=== PATIENT | female | born 1945 | race Caucasian/White ===

== ENCOUNTER 2024-01-17 18:09 | Inpatient (IN) | payer MEDICARE, SELFPAY ==
[2024-01-17 14:58] VITALS: BP 134/78
--- NOTE | 2024-01-17 15:28 | ED.GENMED ---
History of Present Illness
<Merissa Willett NEW CAR MAKE [employer] MECHANIC - Last Filed: 01/18/24 15:25>
General
Chief Complaint: Catheter/Tube Problem
Source: patient and spouse
Exam Limitations: none
Time Seen by Provider: 01/17/24 15:11
Nursing documentation reviewed up to this point in time: agreed with
Travel History
Have you had any contact with someone who has COVID-19?: No
Do you have any symptoms of coronavirus? Fever > 100 degrees, chills, cough, shortness of breath, sore throat, loss of taste or smell, muscle aches, or headache?: No
History of Present Illness
History of Present Illness:
78 yo female with hx bladder CA, L nephrostomy stopped draining properly 3 days ago, changed the bag 3 and 2 days ago, drained but not as much. Yesterday aspirated urine small amount, last night pt became achey, fatigues LLQ tenderness,
chills and felt feverish. Denies n/v. Today still little drainage, aspirated '4 cc's of pus.'
Past History
<Merissa Willett NEW [employer] MECHANIC - Last Filed: 01/18/24 15:25>
Past History
ED Past Medical History: Other (bladder mass causing ANDRE/obstruction)
ED Past Surgical History: Appendectomy and Gynecological (Hysterectomy)
Social History
Tobacco: Non-smoker
Alcohol: None
Drug: None
Personal:
Living: with family
Employment: Retired
Family History
Family History: Other
Review of Systems
<Merissa Willett NEW CAR MAKE [employer] MECHANIC - Last Filed: 01/18/24 15:25>
Review of Systems
Allergies reviewed?: Yes
All Other Systems: ROS reviewed and negative except as documented in HPI and ROS
Constitutional: Reports fever, fatigue and chills
Respiratory: Denies trouble breathing
Cardiac: Denies chest pain
ABD/GI: Reports abdominal pain (She has her typical right lower quadrant abdominal pain from the cancer, she has developed mild left lower quadrant pain past 3 days) and nausea; Denies vomiting or diarrhea
: Reports other (Left nephrostomy tube intact, patient urine has become purulent)
Musculoskeletal: Reports other (General body aches); Denies edema
Skin: Reports no symptoms
Neurological: Reports no symptoms
Phy Exam
<Merissa Willett, NEW CAR MAKE [employer] MECHANIC - Last Filed: 01/18/24 15:25>
Physical Exam
Physical Exam:
GENERAL: No acute distress. A&Ox3.
CONSTITUTIONAL: Afebrile.
EYES: clear, conjunctivae normal
ENMT: moist mucus membranes, Pharynx nl
RESPIRATORY: Regular respirations, nonlabored, lungs clear.
CARDIOVASCULAR: Regular rate and rhythm, no murmurs, no rubs.
GI: Soft, mild tenderness across lower abdomen. Non distended. normal BS
: Nephrostomy tube intact, surrounding skin normal, draining small amount cloudy galeano fluid
MUSCULOSKELETAL: Moves with ease. Well perfused.
SKIN: Warm, dry, pink
PSYCH: Normal mood and affect. Well kept, interactive and appropriate
NEUROLOGIC: Awake, alert and oriented. No focal neurological deficits
Course
<Merissa Willett, NEW CAR [employer] MECHANIC - Last Filed: 01/18/24 15:25>
Orders/Labs/Results
Orders:
Orders
01/17/24 Dinner
Regular
At Your Request: Non-Participating
Does patient need a safe tray?: No
01/17/24 15:28
0.9% Sodium Chloride 1000 ml [Nss] 1,000 ml IV BOLUS
01/17/24 15:37
IV Insert/Care/Rem.- Treatment PRN
CefTRIAXone [Rocephin] 1,000 mg IV NOW STA
01/17/24 15:55
Complete Blood Count/With Diff Urgent
Comprehensive Metabolic Panel Urgent
Lactic Acid Q4H
Comment: CANCEL 2nd LACTIC ACID IF 1st LACTIC ACID IS LESS THAN 2
Urinalysis Reflex To Culture Urgent
Date Specimen was Collected: 01/17/24
Time Specimen was Collected: 15:44
Urine Microscopic Reflex Cult Urgent
Blood Culture Q30M
SHILPA Source: Blood/Venous
Specimen Description:
Urine Culture Urgent
SHILPA Source: U
Specimen Description:
Date Specimen was Collected: 01/17/24
Time Specimen was Collected: 15:44
01/17/24 16:13
Blood Culture Q30M
SHILPA Source: Blood/Venous
Specimen Description:
01/17/24 17:08
Consult Interventional Radiology [IRAD CONSULT] Urgent
Consulting Provider: Christian Harrell
Was physician already notified: Yes
Reason for consult: UTI, acute renal failure, nephrostomy draining pus
01/17/24 17:09
UROLOGY CONSULT Urgent
Consulting Provider: Canelo Rai Jr.
Was physician already notified: Yes
Comment: UTI, acute renal failure, nephrostomy draining pus
01/17/24 17:54
Admit/Transfer Patient As Directed
Co-Sign Provider:
Level of Care: Inpatient admission
Assign to:: Medical/Surgical
Physician / Group: Brittany
Diagnosis: UTI
Reason for Hospitalization: UTI
Expected length of stay greater than two midnights?: Yes
ELOS- Estimated Length of Stay in days: 3
I certify the patient meets the requirements for IP care: Yes
01/17/24 17:55
Code Status As Directed
Resuscitation Status: Full Code
01/17/24 19:25
0.9% Sodium Chloride 1000 ml [Nss] 1,000 ml IV 75 mls/hr
Acetaminophen [Tylenol] 650 mg PO Q4HPRN PRN
Ondansetron Injectable [Zofran] 4 mg IV Q6HPRN PRN
Polyethylene Glycol Powder [Miralax] 17 grams PO DAILYPRN PRN
VANCOMYCIN Pharmacy to Dose [VANCOCIN Pharmacy to Dose] 1 each Pharmacy To Prepare [Call Pharmacy To Prepare] 0 ml IV PER PROTOCOL
01/17/24 19:25
Activity As Directed
Activity Level: Out of Bed-Early Mobility
Vital Signs As Directed
Frequency: Per unit guidelines
DX Deep Vein Thrombosis Video Routine
01/18/24 05:26
Basic Metabolic Panel IN AM
Complete Blood Count/With Diff IN AM
01/18/24 14:00
CefTRIAXone [Rocephin] 1,000 mg IV Q24H
Abnormal Lab Results
01/17/24
15:55
WBC 12.0 H 10^3/uL
(4.8-10.8)
RBC 3.73 L 10^6/uL
(4.20-5.40)
Hgb 11.6 L g/dL
(12.0-16.0)
Hct 33.0 L %
(37.0-47.0)
MCH 31.1 H pg
(27.0-31.0)
Absolute Neuts (auto) 9.9 H 10^3/uL
(1.4-6.5)
Absolute Lymphs (auto) 1.1 L 10^3/uL
(1.2-3.4)
Absolute Monos (auto) 0.9 H 10^3/uL
(0.1-0.6)
Neutrophils % 83.0 H %
(42.2-75.2)
Lymphocytes % 8.9 L %
(20.5-51.1)
Sodium 130 L mmol/L
(135-145)
BUN 40 H mg/dl
(7-17)
Creatinine 3.1 H mg/dL
(0.6-1.0)
Ur Occult Blood Reflex 4+ A
(Negative)
Urine Nitrite (Reflex) Positive A
(Negative)
Leukocyte Esterase Rfl 2+ A
(Negative)
Urine WBC (Reflex) >100 A /HPF
(0-5)
Urine Albumin (Reflex) 3+ A
(Neg - Trace)
01/17/24 15:55
01/17/24 15:55
Vital Signs
Initial and Last Documented VS:
Initial Vital Signs
Temp Pulse Resp BP Pulse Ox
98.2 F 77 18 134/78 97
01/17/24 14:58 01/17/24 14:58 01/17/24 14:58 01/17/24 14:58 01/17/24 14:58
Last Documented Vital Signs
Temp Pulse Resp BP Pulse Ox
98.3 F 69 16 127/86 98
01/18/24 11:19 01/18/24 11:19 01/18/24 11:19 01/18/24 11:19 01/18/24 11:19
Steamer Tender consulted with Physician
Steamer Tender consulted with physician?: Yes
Name of Physician Consulted: Rachael
<Sonam Cano MD - Last Filed: 01/17/24 16:12>
Orders/Labs/Results
Orders:
Orders
01/17/24 Dinner
Regular
At Your Request: Non-Participating
Does patient need a safe tray?: No
01/17/24 15:28
0.9% Sodium Chloride 1000 ml [Nss] 1,000 ml IV BOLUS
01/17/24 15:37
IV Insert/Care/Rem.- Treatment PRN
CefTRIAXone [Rocephin] 1,000 mg IV NOW STA
01/17/24 15:55
Complete Blood Count/With Diff Urgent
Comprehensive Metabolic Panel Urgent
Lactic Acid Q4H
Comment: CANCEL 2nd LACTIC ACID IF 1st LACTIC ACID IS LESS THAN 2
Urinalysis Reflex To Culture Urgent
Date Specimen was Collected: 01/17/24
Time Specimen was Collected: 15:44
Urine Microscopic Reflex Cult Urgent
Blood Culture Q30M
SHILPA Source: Blood/Venous
Specimen Description:
Urine Culture Urgent
SHILPA Source: U
Specimen Description:
Date Specimen was Collected: 01/17/24
Time Specimen was Collected: 15:44
01/17/24 16:13
Blood Culture Q30M
SHILPA Source: Blood/Venous
Specimen Description:
01/17/24 17:08
Consult Interventional Radiology [IRAD CONSULT] Urgent
Consulting Provider: Christian Harrell
Was physician already notified: Yes
Reason for consult: UTI, acute renal failure, nephrostomy draining pus
01/17/24 17:09
UROLOGY CONSULT Urgent
Consulting Provider: Canelo Rai Jr.
Was physician already notified: Yes
Comment: UTI, acute renal failure, nephrostomy draining pus
01/17/24 17:54
Admit/Transfer Patient As Directed
Co-Sign Provider:
Level of Care: Inpatient admission
Assign to:: Medical/Surgical
Physician / Group: Brittany
Diagnosis: UTI
Reason for Hospitalization: UTI
Expected length of stay greater than two midnights?: Yes
ELOS- Estimated Length of Stay in days: 3
I certify the patient meets the requirements for IP care: Yes
01/17/24 17:55
Code Status As Directed
Resuscitation Status: Full Code
01/17/24 19:25
0.9% Sodium Chloride 1000 ml [Nss] 1,000 ml IV 75 mls/hr
Acetaminophen [Tylenol] 650 mg PO Q4HPRN PRN
Ondansetron Injectable [Zofran] 4 mg IV Q6HPRN PRN
Polyethylene Glycol Powder [Miralax] 17 grams PO DAILYPRN PRN
VANCOMYCIN Pharmacy to Dose [VANCOCIN Pharmacy to Dose] 1 each Pharmacy To Prepare [Call Pharmacy To Prepare] 0 ml IV PER PROTOCOL
01/17/24 19:25
Activity As Directed
Activity Level: Out of Bed-Early Mobility
Vital Signs As Directed
Frequency: Per unit guidelines
DX Deep Vein Thrombosis Video Routine
01/18/24 05:26
Basic Metabolic Panel IN AM
Complete Blood Count/With Diff IN AM
01/18/24 14:00
CefTRIAXone [Rocephin] 1,000 mg IV Q24H
Abnormal Lab Results
01/17/24
15:55
WBC 12.0 H 10^3/uL
(4.8-10.8)
RBC 3.73 L 10^6/uL
(4.20-5.40)
Hgb 11.6 L g/dL
(12.0-16.0)
Hct 33.0 L %
(37.0-47.0)
MCH 31.1 H pg
(27.0-31.0)
Absolute Neuts (auto) 9.9 H 10^3/uL
(1.4-6.5)
Absolute Lymphs (auto) 1.1 L 10^3/uL
(1.2-3.4)
Absolute Monos (auto) 0.9 H 10^3/uL
(0.1-0.6)
Neutrophils % 83.0 H %
(42.2-75.2)
Lymphocytes % 8.9 L %
(20.5-51.1)
Sodium 130 L mmol/L
(135-145)
BUN 40 H mg/dl
(7-17)
Creatinine 3.1 H mg/dL
(0.6-1.0)
Ur Occult Blood Reflex 4+ A
(Negative)
Urine Nitrite (Reflex) Positive A
(Negative)
Leukocyte Esterase Rfl 2+ A
(Negative)
Urine WBC (Reflex) >100 A /HPF
(0-5)
Urine Albumin (Reflex) 3+ A
(Neg - Trace)
01/17/24 15:55
01/17/24 15:55
Vital Signs
Initial and Last Documented VS:
Initial Vital Signs
Temp Pulse Resp BP Pulse Ox
98.2 F 77 18 134/78 97
01/17/24 14:58 01/17/24 14:58 01/17/24 14:58 01/17/24 14:58 01/17/24 14:58
Last Documented Vital Signs
Temp Pulse Resp BP Pulse Ox
98.3 F 69 16 127/86 98
01/18/24 11:19 01/18/24 11:19 01/18/24 11:19 01/18/24 11:19 01/18/24 11:19
<Merissa Willett NP - Last Filed: 01/18/24 15:25>
MDM/Problems Addressed
Differential Diagnosis Includes:
UTI, pyelonephritis, need for urostomy tube change
MDM/Problems Addressed:
78 yo female with hx bladder CA, L nephrostomy stopped draining properly 3 days ago, changed the bag 3 and 2 days ago, drained but not as much. Yesterday aspirated urine small amount, last night pt became achey, fatigues LLQ tenderness,
chills and felt feverish. Denies n/v. Today still little drainage, aspirated '4 cc's of pus.'
Afebrile
NAD
78-year-old very bright, pleasant, well female, currently being treated at [facility] for bladder cancer, followed by urologist Dr. Rai, here with purulent urine draining from her left nephrostomy tube.
01/17/2024 1646 PM
01/17/2024 1636 PM
CBC: WBC 12.0
CMP: BUN/creat 40/3.1 GFR 15.02
U/A: shows infection greater than 100 white blood cells, plus nitrites, plus leukocytes, 4+ blood
Pt in acute renal failure with UTI
Notified via tiger text Hospitalist, Dr. Rai (as she is his patient), Dr. Wolfe, ophthalmic surgeon Urologist and ophthalmic surgeon IR Dr. Harrell
Plan: Admit, acute renal failure, UTI, consult for urology and IR in
Hospitalist notified of admission
Pt examined by Dr. Cano who agrees with assessment and plan
<Merissa Willett NEW [employer] MECHANIC - Last Filed: 01/18/24 15:25>
*Critical Care Note
Total Time (30-74mins, 75-104mins- exclusive of procedures): Not Applicable
ED Attending Note
<Merissa Willett NEW [employer] MECHANIC - Last Filed: 01/18/24 15:25>
-
Portions of this chart may have been created with voice recognition software.� Occasional wrong word or��sound alike� substitutions may have occurred due to the inherent limitations of voice recognition software.
<Sonam Cano MD - Last Filed: 01/17/24 16:12>
ED Attending Note
Patient seen and examined by attending physician: Yes
I performed the substantive portion of visit, reviewed & personally made and approve the management plan that is documented in note by myself or JENNIFER.: Yes
ED Attending Note:
Pt appears well-perfused and comfortable. She appears nontoxic. Blood pressure stable. No fever. Case will be discussed with interventional radiology and IR. Blood work awaiting.
Discharge Plan
Departure
Patient Disposition: Admit
Date of Disposition: 01/17/24
Time of Disposition: 17:13
Presentation/result/management discussed w/ accepting MD/DO: Hospitalist
Condition: Serious
Discharge Problem:
Acute UTI, Acute renal failure, Malfunction of nephrostomy tube, Bladder cancer
Interventions
Interventions:
*Risk Screen - Suicide Last Done: 01/17/24 20:23
*General Assessment Last Done: 01/17/24 14:58
*Neglect/Abuse Screening Last Done: 01/17/24 16:10
ED- Fall Risk Assessment Last Done: 01/17/24 16:10
*ED COVID-19 Vaccine History Last Done: 01/17/24 20:23
*Nursing Disposition Last Done: 01/17/24 18:40
TF-Tbjygp-Ytlrtfynsp Assessment Last Done: 01/17/24 16:10
ED-Female Genitourinary Assessment Last Done: 01/17/24 16:10
Discharge Date and Time
Discharge Date/Time: 01/17/24 19:13
[2024-01-17] MEDS: ROCEPHIN 1000 MG IV (15:52)
[2024-01-17] MEDS: NSS 1000 IV ×2 (15:53→20:15)
[2024-01-17 16:01] VITALS: BP 116/79
[2024-01-17 16:15] LABS: % Basophils 0.1 % (0-2); % Eosinophils 0.2 % (0-6); % Immature Granulocytes 0.3 % (0-0.5); % Lymphocytes 8.9 % (20.5-51.1); % Monocytes 7.5 % (1.7-9.3); Absolute Lymphocytes 1.1 10^3/uL (1.2-3.4); Absolute Monocytes 0.9 10^3/uL (0.1-0.6); Absolute Neutrophils 9.9 10^3/uL (1.4-6.5); Hemoglobin 11.6 g/dL (12.0-16.0); Mean Corp Hgb Conc. 35.2 g/dL (33.0-37.0); Mean Corpuscular Hgb 31.1 pg (27.0-31.0); Mean Corpuscular Volume 88.5 fL (81.0-99.0); Mean Platelet Volume 8.7 fL (7.4-10.4); Nucleated Red Blood Cells % 0 %; Platelet Count 312 10^3/uL (130-400); Red Blood Cell Count 3.73 10^6/uL (4.20-5.40); Red Cell Dist. Width 12.8 % (11.5-14.5)
[2024-01-17 16:19] LABS: Urine Albumin 3+ (Neg - Trace); Urine Bilirubin Negative (Negative); Urine Character Very Cloudy (Clear); Urine Color Yellow; Urine Glucose Negative (Negative); Urine Ketone Negative (Negative); Urine Leukocyte 2+ (Negative); Urine Nitrite Positive (Negative); Urine Occult Blood 4+ (Negative); Urine Urobilinogen Negative (Neg - 1+)
[2024-01-17 16:30] LABS: Lactic Acid 0.8 mmol/L (0.7-2.0)
[2024-01-17 16:32] LABS: ALT (SGPT) 13 U/L (0-35); AST (SGOT) 19 U/L (14-36); Albumin 3.6 g/dl (3.5-5.0); Alkaline Phosphatase 89 U/L (38-126); Blood Urea Nitrogen 40 mg/dl (7-17); Carbon Dioxide 27 mmol/L (22-30); Chloride 98 mmol/L (98-107); Glucose 97 mg/dl (70-99); Potassium 4.8 mmol/L (3.5-5.1); Sodium 130 mmol/L (135-145); Total Bilirubin 0.7 mg/dl (0.2-1.3); Total Protein 6.8 g/dl (6.3-8.2); eGFR 15.02
[2024-01-17 16:50] LABS: Urine White Cell >100 /HPF (0-5)
[2024-01-17 17:00] VITALS: BP 128/76
[2024-01-17 18:01] VITALS: BP 122/67
--- NOTE | 2024-01-17 18:28 | HPS.HSE ---
Family Physician
-
Family Physician: * NONE
Chief Complaint
-
Fatigue, nausea, vomiting and purulent discharge from left nephrostomy tube
History of Present Illness
Pleasant 78-year-old female lives at home with her and family, presented to the hospital complaining of having generalized weakness, fatigue, nausea and nonbloody vomiting, also noticed a purulent discharge from her left nephrostomy tube.
Admitted poor appetite for last couple of day.
Patient was diagnosed with bladder cancer and July 2022 and since then she was referred to [facility] and get chemo on total October of the last year and look like she was told she is cancer free by then she is supposed to have another scan we
will decide on surgery accordingly.
She had a UTI not long ago and urine grow MRSA and Enterococcus.
Denies any diarrhea, no chest pain or shortness of breath or cough or congestion, no weakness or numbness in extremities, she is not urinating normally because of the bilateral nephrostomy tube.
In the ER received fluids and antibiotic and overall feels some improvement and she feels her appetite improved and she wants to eat.
Medical History
Past Medical History
Past Medical History: Reports Other
Additional Past Medical History:
Past medical history reviewed:
Bladder cancer.
Surgical history:
Bilateral nephrostomy tube placement
Appendectomy
Hysterectomy nephrectomy.
Social history: Lives at home with the family, denies smoking alcohol use
Past Surgical History: Reports Other
Social History
Unable to obtain full social history at this time due to: Other
Alcohol: Other
Family History
Family History: Other
Allergies / Home Medications
Allergies reflects when Allergies were last updated in [employer].
Home Medications with original date entered in [employer]
Allergy/Medication List:
Allergies
Allergy/AdvReac Type Severity Reaction Status Date / Time
No Known Allergies Allergy Verified 01/17/24 15:02
Home Medications
oxycodone-acetaminophen 10 mg-325 mg tablet 1 tab PO Q6HPRN PRN severe pain 01/02/23
ashwagandha extract 120 mg capsule 120 mg PO DAILY 01/17/24
calcium carbonate 500 mg calcium (1,250 mg) tablet 500 mg PO DAILY 01/17/24
cholecalciferol (vitamin D3) 25 mcg (1,000 unit) tablet (Vitamin D3) 25 mcg PO DAILY 01/17/24
coQ10 (ubiquinol) 100 mg capsule 200 mg PO DAILY 01/17/24
lutein 10 mg tablet 10 mg PO DAILY 01/17/24
omega 4-yve-qxc-fish oil 1,000 mg (120 mg-180 mg) capsule (Fish Oil) 1 cap PO DAILY 01/17/24
polyethylene glycol 3350 17 gram oral powder packet (Miralax) 17 g PO DAILYPRN PRN constipation 01/17/24
therapeutic multivitamin 1 tab PO DAILY 01/17/24
vitamin E 268 mg (400 unit) capsule 268 mg PO DAILY 01/17/24
vitamin K2 45 mcg capsule 45 mcg PO DAILY 01/17/24
Review of Systems
-
A 12 point ROS was completed and negative except as noted: Yes
Physical Exam
Vital Signs
Vital Signs
Temp Pulse Resp BP Pulse Ox
98.2 F 67 19 122/67 96
01/17/24 14:58 01/17/24 18:01 01/17/24 18:01 01/17/24 18:01 01/17/24 18:01
Physical exam:
General: Awake, alert and oriented x3, not in distress and holds appropriate conversation.
HEENT: No active discharge, ecchymosis or bruising, moist lips, tongue and mucous membrane.
Eyes: No discharge or red conjunctiva, no nystagmus, pupils are reactive and equal
Neck:Supple, no JVD no bruit no goiter.
Respiratory: Normal AP contour and diameter, normal chest wall movement, normal respiratory effort, no respiratory distress,
Lungs: Good air entry bilaterally, no wheezing or rhonchi, no rales or crackles
Heart: S1, S2 regular, normal rate, no added sound.
Genitourinary:
Bilateral nephrostomy tube in the left bag containing some purulent milky material.
Gastrointestinal: Positive bowel sounds, soft, nontender, no guarding or rigidity or organomegaly
Musculoskeletal: , no chest wall abnormality or tenderness. All joints and extremities have good range of motion, no muscle tenderness or any joint swelling or tenderness.
Extremities: No pitting edema, good peripheral pulses, good range of motion
Skin: Warm and dry, no ulceration, normal color.
Neurological: Awake, alert and oriented x3, no facial droop speech clear and comprehensive, good muscle tone, normal sensory and motor function
Psychiatric: Normal mood, normal thought and judgment, normal affect,
Physical Exam
General: Other
Laboratory Results
-
01/17/24 15:55
01/17/24 15:55
Laboratory Results
Lactic Acid 0.8 mmol/L (0.7-2.0) 01/17/24 15:55
Total Bilirubin 0.7 mg/dl (0.2-1.3) 01/17/24 15:55
AST 19 U/L (14-36) 01/17/24 15:55
ALT 13 U/L (0-35) 01/17/24 15:55
Alkaline Phosphatase 89 U/L (38-126) 01/17/24 15:55
Data Reviewed
-
Medical Tests (Nuc Med, Echo, EKG etc): Discussed with Patient
Lab Data: Labs Reviewed by me and Discussed with Patient
Old Records: Reviewed
Impression/Plan
-
IMPRESSION:
Pleasant 78-year-old female with history of bladder cancer diagnosed July 2022 and since then she is having bilateral nephrostomy tube. Presented to the hospital with fatigue, nausea and vomiting and purulent discharge from the lower
nephrostomy with the workup concerning for UTI.
Urinary tract infection likely nephrostomy tube related
Leukocytosis
Nausea and vomiting
Dehydration
PLAN:
IV fluid
Pain and nausea medication
I will cover her with Rocephin and vancomycin IV because of the history of the MRSA and Enterococcus grew in her past culture, antibiotic can be tailored accordingly.
Urology consulted and they have been contacted as well as IR
Urology and IR consult.
She takes multiple vitamins and pulm on hold
Continue her home dose of Percocet as needed.
All discussed with the patient in detail and expressed understanding
CODE STATUS full code
DVT prophylaxis Lovenox
[2024-01-17 19:51] VITALS: BP 144/86; BMI 18.7
--- NOTE | 2024-01-17 19:56 | PHA.VAN.IN ---
Assessment
- Assessment
Renal Function: Appears elevated from baseline (baseline 1.0-1.3)
Maximum Temperature: 98.2
Minimum Temperature: 97.7
Concomitant Antimicrobials: ceftriaxone
Historical Micro: History of MRSA infection (01/02/2023 in urine)
Plan
- Plan
Initial / Loading Dose: 1500mg (28 mg/kg) pending administration
Maintenance Regimen: dose by level
Monitoring: random 01/18 am
Pharmacokinetics Vancomycin I
- -
Patient Age: 78
Patient Sex: Female
Vancomycin Day #: 1
Indication: Genito-Urinary Tract
Requesting Provider: Dr Soto
Pertinent Antimicrobial Allergies:
no known allergies
Height / Weight:
Height 5 ft 7 in
Actual Weight 54.148 kg
Pertinent Past Medical History: bladder cancer with nephrostomy tubes
- Vital Signs / Lab Results
Temp Pulse Resp BP Pulse Ox
97.7 F 74 20 144/86 97
01/17/24 19:51 01/17/24 19:51 01/17/24 19:51 01/17/24 19:51 01/17/24 19:51
Lab Results - Hematology
01/17/24
15:55
WBC 12.0 H
Lab Results - Chemistry
01/17/24
15:55
BUN 40 H
Creatinine 3.1 H
Albumin 3.6
01/17/24
15:55
Lactic Acid 0.8
Lab Results - Urine
01/17/24
15:55
Urine Nitrite (Reflex) Positive A
Leukocyte Esterase Rfl 2+ A
Urine WBC (Reflex) >100 A
Ur Squamous Epith Cells
Urine Bacteria (Reflex)
[2024-01-17] MEDS: VANCOCIN 300 MG IV (20:15)
[2024-01-17] MEDS: VANCOCIN 300 ML IV (20:15)
[2024-01-17] MEDS: ROXICODONE 10 MG PO (21:55)
[2024-01-17 23:03] VITALS: BP 127/78
[2024-01-17] MEDS: HEPARIN SC (23:39)
[2024-01-17] MEDS: HEPARIN 5000 UNITS SC (23:43)
[2024-01-18 06:03] LABS: % Basophils 0.3 % (0-2); % Eosinophils 1.9 % (0-6); % Immature Granulocytes 0.3 % (0-0.5); % Lymphocytes 20.4 % (20.5-51.1); % Monocytes 7.5 % (1.7-9.3); % Neutrophils 69.6 % (42.2-75.2); Absolute Eosinophils 0.2 10^3/uL (0-0.7); Absolute Lymphocytes 1.9 10^3/uL (1.2-3.4); Absolute Monocytes 0.7 10^3/uL (0.1-0.6); Absolute Neutrophils 6.3 10^3/uL (1.4-6.5); Hematocrit 33.5 % (37.0-47.0); Hemoglobin 11.4 g/dL (12.0-16.0); Mean Corpuscular Hgb 31.4 pg (27.0-31.0); Mean Corpuscular Volume 92.3 fL (81.0-99.0); Mean Platelet Volume 9.2 fL (7.4-10.4); Nucleated Red Blood Cells % 0 %; Platelet Count 306 10^3/uL (130-400); Red Blood Cell Count 3.63 10^6/uL (4.20-5.40); Red Cell Dist. Width 12.7 % (11.5-14.5); White Blood Cell Count 9.1 10^3/uL (4.8-10.8)
[2024-01-18 06:13] LABS: Vancomycin Random 20.5 ug/ml
[2024-01-18 06:30] LABS: Blood Urea Nitrogen 41 mg/dl (7-17); Calcium 9.1 mg/dl (8.4-10.2); Carbon Dioxide 23 mmol/L (22-30); Chloride 101 mmol/L (98-107); Estimated Creatinine Clearance 15 ml/min; Glucose 94 mg/dl (70-99); Potassium 4.4 mmol/L (3.5-5.1); Sodium 135 mmol/L (135-145); eGFR 16.97
[2024-01-18 07:10] VITALS: BP 118/77
[2024-01-18] MEDS: HEPARIN SC (08:26)
[2024-01-18 08:36] VITALS: BP 161/100; BP_SYST 70
--- NOTE | 2024-01-18 09:01 | PHA.VAN.FU ---
Vancomycin Assessment / Plan
- Assessment
Renal Function: SCR Decreasing
WBC's are: Trending Down
In the past 24 hrs, patient has been: Afebrile
Concomitant Antimicrobials: ceftriaxone
- Assessment - Therapeutic Drug Monitoring
Random Level: 20.5 - drawn ~9H after 1500mg loading dose
- Dosing Plan
Dosing by Level: Hold off on dosing today
- Monitoring Plan
Random Level: 01/19 600
- Follow Up
Pharmacy will continue to follow.
Vancomycin Follow UP
- -
Patient Age: 78
Patient Sex: Female
Vancomycin Day #: 2
Indication: Genito-Urinary Tract
Requesting Provider: Dr Soto
Pertinent Antimicrobial Allergies:
NKDA
Height / Weight:
Height 5 ft 7 in
Actual Weight 54.148 kg
IBW in k.6
Pertinent Past Medical History: bladder cancer with nephrostomy tubes, BMI ~19
- Vital Signs / Lab Results
Temp Pulse Resp BP Pulse Ox
98.2 F 70 16 161/100 98
01/18/24 07:10 01/18/24 08:36 01/18/24 08:36 01/18/24 08:36 01/18/24 08:36
Lab Results - Hematology
01/17/24 01/18/24
15:55 05:26
WBC 12.0 H 9.1
Lab Results - Chemistry
01/17/24 01/18/24
15:55 05:26
BUN 40 H 41 H
Creatinine 3.1 H 2.8 H
Estimated Creat Clear 15
Albumin 3.6
01/17/24 01/17/24
15:55 19:45
Lactic Acid 0.8 Cancelled
Lab Results - Urine
01/17/24
15:55
Urine Nitrite (Reflex) Positive A
Leukocyte Esterase Rfl 2+ A
Ur Squamous Epith Cells
Therapeutic Drug Monitoring
Random Vancomycin 20.5 ug/ml 01/18/24 05:26
[2024-01-18] MEDS: MIRALAX 17 GRAMS PO (09:37)
[2024-01-18] MEDS: ROXICODONE 10 MG PO ×2 (09:37→20:11)
[2024-01-18] MEDS: TYLENOL 325 MG PO (09:40)
--- NOTE | 2024-01-18 09:53 | CONS.URO ---
Consultation
-
Performing Provider: Aiden
Reason for Consultation: UTI, blocked nephrostomy
Medical History
History of Present Illness
78F well known to Dr. Rai with hx of bladder cancer since 2021 and ureteral obstruction s/p b/l PCN placement
Currently being treated at [facility] for her advanced disease with systemic therapy and recently a great response to treatment
Presented to the hospital complaining of having generalized weakness, fatigue, nausea and nonbloody vomiting, also noticed a purulent discharge from her left nephrostomy tube.
CT showed slightly increased distension of the R collecting system
Past Medical History
Past Medical History: Other (Bladder cancer)
Past Surgical History: Other (Bilateral nephrostomy tube placement Appendectomy Hysterectomy)
Social History
Tobacco: Non-smoker
Personal:
Living: With Family
Family History
Family History: Reviewed & Not Pertinent
Allergies/Home Medications
Allergies
Allergy/AdvReac Type Severity Reaction Status Date / Time
No Known Allergies Allergy Verified 01/17/24 15:02
Home Medications
Medication Instructions Recorded Confirmed Type
oxycodone-acetaminophen 10 mg-325 1 tab PO Q6HPRN PRN severe pain 01/02/23 01/17/24 History
mg tablet
ashwagandha extract 120 mg capsule 120 mg PO DAILY Supplement 01/17/24 01/17/24 History
calcium carbonate 500 mg calcium 500 mg PO DAILY Supplement 01/17/24 01/17/24 History
(1,250 mg) tablet
cholecalciferol (vitamin D3) 25 25 mcg PO DAILY Supplement 01/17/24 01/17/24 History
mcg (1,000 unit) tablet (Vitamin
D3)
coQ10 (ubiquinol) 100 mg capsule 200 mg PO DAILY Supplement 01/17/24 01/17/24 History
lutein 10 mg tablet 10 mg PO DAILY Supplement 01/17/24 01/17/24 History
omega 8-ujg-tgf-fish oil 1,000 mg 1 cap PO DAILY Supplement 01/17/24 01/17/24 History
(120 mg-180 mg) capsule (Fish Oil)
polyethylene glycol 3350 17 gram 17 g PO DAILYPRN PRN constipation 01/17/24 01/17/24 History
oral powder packet (Miralax)
therapeutic multivitamin 1 tab PO DAILY Supplement 01/17/24 01/17/24 History
vitamin E 268 mg (400 unit) capsule 268 mg PO DAILY Supplement 01/17/24 01/17/24 History
vitamin K2 45 mcg capsule 45 mcg PO DAILY Supplement 01/17/24 01/17/24 History
Physical Exam
Vital Signs
Vital Signs
Temp Pulse Resp BP Pulse Ox
98.2 F 70 16 161/100 98
01/18/24 07:10 01/18/24 08:36 01/18/24 08:36 01/18/24 08:36 01/18/24 08:36
Lab / Testing Results
Laboratory Results
01/18/24 05:26
01/18/24 05:26
Physical Exam
General: Well Developed, Well Nourished and No Apparent Distress
Respiratory: Clear
GI: Soft and Non Tender
Genito-urinary: No Costovertebral Tend and Other (b/l PCN in place and draining clear urine now s/p replacement)
Neuro: AO x 3
Psych: Calm and Intact Judgement
Assessment / Plan
-
78F with bladder cancer with bilateral ureteral obstruction and chronic indwelling b/l nephrostomy
Admitted with UTI and purulent drainage/obstruction of R nephrostomy
now s/p IR replacement of tubes 01/18
- Continue abx pending cultures
- 10-14 day total abx course for complicated UTI
- Outpatient follow up at [facility] for further cancer treatment
Data Reviewed
-
CT Scan: Image personally visualized and interpreted
[2024-01-18 11:19] VITALS: BP 127/86
[2024-01-18 12:41] VITALS: BMI 18.7
--- NOTE | 2024-01-18 13:07 | W.PN.HOSP.TC ---
Today's Communication/Plan
-
cont abx
f/u cultures
tubes exchanged today
Assessment / Plan
Assessment / Plan
Physical exam:
General: Awake, alert and oriented x3, not in distress and holds appropriate conversation.
HEENT: No active discharge, ecchymosis or bruising, moist lips, tongue and mucous membrane.
Eyes: No discharge or red conjunctiva, no nystagmus, pupils are reactive and equal
Neck:Supple, no JVD no bruit no goiter.
Respiratory: Normal AP contour and diameter, normal chest wall movement, normal respiratory effort, no respiratory distress,
Lungs: Good air entry bilaterally, no wheezing or rhonchi, no rales or crackles
Heart: S1, S2 regular, normal rate, no added sound.
Genitourinary:
Bilateral nephrostomy tube in the left bag containing some purulent milky material.
Gastrointestinal: Positive bowel sounds, soft, nontender, no guarding or rigidity or organomegaly
Musculoskeletal: , no chest wall abnormality or tenderness.� All joints and extremities have good range of motion, no muscle tenderness or any joint swelling or tenderness.
Extremities: No pitting edema, good peripheral pulses, good range of motion
Skin: Warm and dry, no ulceration, normal color.�
Neurological: Awake, alert and oriented x3, no facial droop speech clear and comprehensive, good muscle tone, normal sensory and motor function
Psychiatric: Normal mood, normal thought and judgment, normal affect,
78F with bladder cancer with bilateral ureteral obstruction and chronic indwelling b/l nephrostomy admitted with UTI and purelent drainage/obstruction of R nephrostomy
#Complicated UTI
#Bilateral nephrostomy tubes
� Exchanged nephrostomy tube today
� Continue Rocephin, vancomycin for history of MRSA and Enterococcus�will need 14-day course of antibiotics
� Follow-up cultures
� Follow-up urology, IR recommendations
All discussed with the patient in detail and expressed understanding
CODE STATUS full code
DVT prophylaxis Lovenox
Anticipated Discharge: 24 - 48 hours
Subjective/Interval History
-
Date of Service: January 18, 2024
Nephrostomy tube exchanged today
Objective Data
-
Labs:
Laboratory Results
01/18/24
05:26
WBC 9.1
Hgb 11.4 L
Hct 33.5 L
Plt Count 306
Sodium 135
Potassium 4.4
Chloride 101
Carbon Dioxide 23
BUN 41 H
Creatinine 2.8 H
Glucose 94
Calcium 9.1
Vital Signs:
Vital Signs
Temp Pulse Resp BP Pulse Ox
98.2 F 70 16 161/100 98
01/18/24 07:10 01/18/24 08:36 01/18/24 08:36 01/18/24 08:36 01/18/24 10:39
I&O
01/17/24 01/18/24 01/19/24
06:59 06:59 06:59
Intake Total 960 / 960
Output Total 700 / 700
Balance 260 / 260
Review of Systems
-
History Source: Patient
All other systems: Not reviewed unless documented
Physical Exam
-
General: No Apparent Distress, Comfortable and Appears Chronically Ill
HEENT: Atraumatic and Moist Mucous Membranes
Respiratory: Clear to Auscultation
Cardiac: Regular Rhythm and S1/S2
GI: Soft, Nontender and Nondistended
Genito-urinary: Nephrostomy Tubes (Bilateral with clear urine, no hematuria )
Musculoskeletal: No Cyanosis and No Edema
Neuro: Oriented and Nonfocal/Grossly Intact; Negative Tremors, Slurred Speech or Facial Droop
Hematologic / Lymphatic: No Lymphadenopathy
Psych: Calm and Intact Judgement/Insight
Data Reviewed
-
CT Scan: Image personally visualized and interpreted and Report Reviewed by me
Labs: Labs Reviewed by me
[2024-01-18] MEDS: ROCEPHIN 1000 MG IV (14:12)
[2024-01-18] MEDS: STERILE WATER FOR INJECTION 10 ML IV (14:13)
[2024-01-18 15:13] VITALS: BP 136/83
[2024-01-18] MEDS: HEPARIN 5000 UNITS SC ×2 (15:48→23:39)
--- NOTE | 2024-01-18 18:24 | CM ---
Initial assessment completed with patient who lives with her in a 3 story plus basement home with 1 step to enter. B/B on 2nd and a full bath 2 step lower than ground level. [employer] was independent, drove, no DME, No in home services, no
psychiatric history, Pharmacy is [facility] in [place] and PCP is Dr. Andrew Fine. Discharge plan of care: Home with no needs.
[2024-01-18 19:40] LABS: Hepatitis C Antibody Negative (Negative)
[2024-01-18] MEDS: MELATONIN 5 MG PO (22:23)
[2024-01-18 23:24] VITALS: BP 129/76
[2024-01-19 04:55] LABS: Hematocrit 31.6 % (37.0-47.0); Hemoglobin 10.7 g/dL (12.0-16.0); Mean Corp Hgb Conc. 33.9 g/dL (33.0-37.0); Mean Corpuscular Hgb 31.4 pg (27.0-31.0); Mean Corpuscular Volume 92.7 fL (81.0-99.0); Mean Platelet Volume 8.9 fL (7.4-10.4); Platelet Count 276 10^3/uL (130-400); Red Blood Cell Count 3.41 10^6/uL (4.20-5.40); Red Cell Dist. Width 12.6 % (11.5-14.5); White Blood Cell Count 5.8 10^3/uL (4.8-10.8)
[2024-01-19 05:26] LABS: ALT (SGPT) 12 U/L (0-35); AST (SGOT) 17 U/L (14-36); Albumin 2.8 g/dl (3.5-5.0); Alkaline Phosphatase 65 U/L (38-126); Blood Urea Nitrogen 41 mg/dl (7-17); Calcium 9.2 mg/dl (8.4-10.2); Carbon Dioxide 27 mmol/L (22-30); Chloride 104 mmol/L (98-107); Estimated Creatinine Clearance 19 ml/min; Glucose 102 mg/dl (70-99); Potassium 4.6 mmol/L (3.5-5.1); Sodium 137 mmol/L (135-145); Total Bilirubin 0.3 mg/dl (0.2-1.3); eGFR 23.97
[2024-01-19 07:23] VITALS: BP 134/77
--- NOTE | 2024-01-19 07:43 | PN.CDI ---
CDI
- -
CDI:
Physician Documentation Request
Admit Date: 01/17/24 18:09
Dear Doctor Lily,
Please review the following and provide your response in the progress notes.
Clinical Indicators:
vegetable tier, 01/18
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
#...but now pt feels her appetite improved and she wants to eat.
#CBW: 119 lb 6 oz BMI 18.7 normal range (underweight for ages >65) 01/18/24;
#...108 lb 0.424 oz
Based on the above and your clincal assessment, please provide an associated diagnosis related to the BMI:
BMI 18.7, underweight
Cachectic
Anorexia
Other (please specify)
BMI < or = to 19
Underweight
Weight Loss
Cachectic
Anorexia
Use of terms such as suspected, likely, concern for, or probable (associated with a specific diagnosis that is being evaluated, monitored, or treated as if it exists) are acceptable and can be coded in the inpatient setting, when documented at the
time of discharge.
Thank you,
Anh Joy RN BSN CCDS
CDI Specialist
please contact via tiger text
Please use your independent medical judgment in providing your response.
--- NOTE | 2024-01-19 07:45 | W.PN.URO.CBU ---
Today's Communication / Plan
-
continue antibx and await cx's
Assessment / Plan
-
locally advanced bladder cancer with bilateral ureteral obstruction requiring percs
chemo at [facility]- recent PET with excellent response
perc tube obstruction/UTI
pt improving
percs changed yesterday
awaiting cx's
has f/u at [facility] scheduled
Diagnosis
-
Date of Service: January 19, 2024
-
Patient Diagnosis:
locally advance bladder cancer- undergoing chemo at [facility]
bilateral ureteral obstruction s/p percs- left kidney functional/right kidney marginal
UTI
Subjective
-
pt feels much better
had percs replaced yesterday
afebrile/ wbc normalized
cr declining
Objective
-
Vital Signs
Temp Pulse Resp BP Pulse Ox
97.6 F 59 16 134/77 95
01/19/24 07:23 01/19/24 07:23 01/19/24 07:23 01/19/24 07:23 01/19/24 07:23
Intake and Output
01/18/24 01/19/24 01/20/24
06:59 06:59 06:59
Intake Total 960 / 960 1530 / 1530
Output Total 700 / 700 1100 / 1100
Balance 260 / 260 430 / 430
Intake:
Oral fluids 960 / 960 1530 / 1530
Output:
Urinary Drain Output (Total) 700 / 700 1100 / 1100
Left Nephrostomy 400 / 400 500 / 500
Right Nephrostomy 300 / 300 600 / 600
Laboratory Results
01/19/24 04:40
01/19/24 04:40
Review of Systems
-
Constitutional: Fatigue
Respiratory: No Symptoms
Cardiac: No Symptoms
Abdomen/GI: No Symptoms
Physical Exam
-
General -no acute distress
Abdomen - soft, non-tender, percs in place
--- NOTE | 2024-01-19 07:51 | PN.CDI ---
CDI
- -
CDI:
Physician Documentation Request
Admit Date: 01/17/24 18:09
Dear Doctor Lily,
Please review the following and provide your response in the progress notes.
Clinical Indicators:
ER, 01/17
#Acute UTI, Acute renal failure, Malfunction of nephrostomy tube, Bladder cancer
Laboratory Tests
01/17/24 01/17/24 01/18/24
15:55 15:55 05:26
Creatinine 3.1 H 2.8 H
eGFR 15.02
01/18/24 01/19/24 01/19/24
05:26 04:40 04:40
Creatinine 2.1 H
eGFR 16.97 23.97
Based on the above information and the clinical indicators in the record, please clarify in the Progress Notes which of the following most accurately represents the patient's renal status, POA:
Acute kidney injury on baseline CKD, (specify stage of CKD)
Chronic stable CKD, (specify stage)
Progression of underlying CKD, (specify current stage of CKD)
Other (please specify
Criteria for ANDRE*
1 Increase in serum creatinine by > or = to 0.3 mg/dL (> or = to 26.5 micromol/L) within 48 hours, OR
2 Increase in serum creatinine to > or = to 1.5 times baseline, which is known or presumed to have occurred within 7 days, OR
3 Urine volume < 0.5 nL/kg/hour for six hours
Stages of Chronic Kidney Disease*
Level Description GFR
G1 Normal or High >90
G2 Mildly decreased 60-89
G3a Mildly to moderately decreased 45-59
G3b Moderately to severely decreased 30-44
G4 Severely decreased 15-29
G5 Kidney failure <15
Use of terms such as suspected, likely, concern for, or probable (associated with a specific diagnosis that is being evaluated, monitored, or treated as if it exists) are acceptable and can be coded in the inpatient setting, when documented at the
time of discharge.
Thank you,
Anh Joy RN BSN CCDS
CDI Specialist
please contact via tiger text
Please use your independent medical judgment in providing your response.
*Source: Kidney Disease: Improving Global Outcomes (KDIGO) 2012
--- NOTE | 2024-01-19 08:02 | PN.CDI ---
CDI
- -
CDI:
Physician Documentation Request
Admit Date: 01/17/24 18:09
Dear Doctor Lily,
Please review the following and provide your response in the progress notes.
Clinical Indicators:
Laboratory Tests
01/17/24 01/18/24 01/19/24
15:55 05:26 04:40
Sodium 130 L 135 137
Based on the above, please clarify in the progress notes, the appropriate diagnosis, if significant, that supports the above abnormalities and additional evaluation, monitoring and/or treatment rendered:
Hyponatremia, POA, now resolved
Abnormal lab value, clinically insignificant
Other
Use of terms such as suspected, likely, concern for, or probable (associated with a specific diagnosis that is being evaluated, monitored, or treated as if it exists) are acceptable and can be coded in the inpatient setting, when documented at the
time of discharge.
Thank you,
Anh Joy RN BSN CCDS
CDI Specialist
please contact via tiger text
Please use your independent medical judgment in providing your response.
--- NOTE | 2024-01-19 08:02 | PHA.VAN.FU ---
Vancomycin Assessment / Plan
- Assessment
Renal Function: SCR Decreasing
WBC's are: WNL
In the past 24 hrs, patient has been: Afebrile
Concomitant Antimicrobials: ceftriaxone
- Assessment - Therapeutic Drug Monitoring
Random Level: 13 - drawn ~23H after previous level of 20.5
Calculated ke: 0.0196
Calculated half life (H): 35
- Dosing Plan
Dosing by Level: Re-dose today (Vanc 750mg)
- Monitoring Plan
Random Level: 01/20 06
- Follow Up
Pharmacy will continue to follow.
Vancomycin Follow UP
- -
Patient Age: 78
Patient Sex: Female
Vancomycin Day #: 3
Indication: Genito-Urinary Tract
Requesting Provider: Dr Soto
Pertinent Antimicrobial Allergies:
NKDA
Height / Weight:
Height 5 ft 7 in
Actual Weight 54.148 kg
IBW in k.6
Pertinent Past Medical History: bladder cancer with nephrostomy tubes, BMI ~19
- Vital Signs / Lab Results
Temp Pulse Resp BP Pulse Ox
97.6 F 59 16 134/77 95
01/19/24 07:23 01/19/24 07:23 01/19/24 07:23 01/19/24 07:23 01/19/24 07:23
Lab Results - Hematology
01/17/24 01/18/24 01/19/24
15:55 05:26 04:40
WBC 12.0 H 9.1 5.8
Lab Results - Chemistry
01/17/24 01/18/24 01/19/24
15:55 05:26 04:40
BUN 40 H 41 H 41 H
Creatinine 3.1 H 2.8 H 2.1 H
Estimated Creat Clear 15 19
Albumin 3.6 2.8 L
01/17/24 01/17/24
15:55 19:45
Lactic Acid 0.8 Cancelled
Microbiology Results
01/17/24 16:13 Blood Culture - Preliminary
Blood/Venous No Growth in 24 hours- Final report to follow
01/17/24 15:55 Blood Culture - Preliminary
Blood/Venous No Growth in 24 hours- Final report to follow
Therapeutic Drug Monitoring
Random Vancomycin 13.0 ug/ml 01/19/24 04:40
[2024-01-19] MEDS: HEPARIN 5000 UNITS SC ×2 (08:14→15:12)
[2024-01-19] MEDS: MIRALAX 17 GRAMS PO (08:22)
[2024-01-19] MEDS: SENOKOT-S 1 TABLET PO (08:51)
[2024-01-19] MEDS: ROXICODONE 10 MG PO ×2 (08:51→20:58)
[2024-01-19] MEDS: VANCOCIN 150 IV (12:09)
[2024-01-19] MEDS: FLUSH (NSS) 1 FLUSH IV (12:19)
--- NOTE | 2024-01-19 13:27 | W.PN.HOSP.TC ---
Today's Communication/Plan
-
cont abx
f/u cultures
Assessment / Plan
Assessment / Plan
Physical exam:
General: Awake, alert and oriented x3, not in distress and holds appropriate conversation.
HEENT: No active discharge, ecchymosis or bruising, moist lips, tongue and mucous membrane.
Eyes: No discharge or red conjunctiva, no nystagmus, pupils are reactive and equal
Neck:Supple, no JVD no bruit no goiter.
Respiratory: Normal AP contour and diameter, normal chest wall movement, normal respiratory effort, no respiratory distress,
Lungs: Good air entry bilaterally, no wheezing or rhonchi, no rales or crackles
Heart: S1, S2 regular, normal rate, no added sound.
Genitourinary:
Bilateral nephrostomy tube in the left bag containing some purulent milky material.
Gastrointestinal: Positive bowel sounds, soft, nontender, no guarding or rigidity or organomegaly
Musculoskeletal: , no chest wall abnormality or tenderness.� All joints and extremities have good range of motion, no muscle tenderness or any joint swelling or tenderness.
Extremities: No pitting edema, good peripheral pulses, good range of motion
Skin: Warm and dry, no ulceration, normal color.�
Neurological: Awake, alert and oriented x3, no facial droop speech clear and comprehensive, good muscle tone, normal sensory and motor function
Psychiatric: Normal mood, normal thought and judgment, normal affect,
78F with bladder cancer with bilateral ureteral obstruction and chronic indwelling b/l nephrostomy admitted with UTI and purelent drainage/obstruction of R nephrostomy
#Complicated UTI
#Bilateral nephrostomy tubes
� Exchanged nephrostomy tube today
� Continue Rocephin, vancomycin for history of MRSA and Enterococcus�will need 14-day course of antibiotics
� Follow-up cultures
� Follow-up urology, IR recommendations
#ANDRE
-2/2 to complicated UTI
-improving with treatment above
All discussed with the patient in detail and expressed understanding
CODE STATUS full code
DVT prophylaxis Lovenox
Anticipated Discharge: Within 24 hours
Subjective/Interval History
-
Date of Service: January 19, 2024
no acute events
Objective Data
-
Labs:
Laboratory Results
01/19/24
04:40
WBC 5.8
Hgb 10.7 L
Hct 31.6 L
Plt Count 276
Sodium 137
Potassium 4.6
Chloride 104
Carbon Dioxide 27
BUN 41 H
Creatinine 2.1 H
Glucose 102 H
Calcium 9.2
Total Bilirubin 0.3
AST 17
ALT 12
Alkaline Phosphatase 65
Vital Signs:
Vital Signs
Temp Pulse Resp BP Pulse Ox
97.6 F 59 16 134/77 96
01/19/24 07:23 01/19/24 07:23 01/19/24 07:23 01/19/24 07:23 01/19/24 08:00
I&O
01/18/24 01/19/24 01/20/24
06:59 06:59 06:59
Intake Total 960 / 960 1530 / 1530
Output Total 700 / 700 1100 / 1100
Balance 260 / 260 430 / 430
Review of Systems
-
History Source: Patient
All other systems: Not reviewed unless documented
Physical Exam
-
General: No Apparent Distress, Comfortable and Appears Chronically Ill
HEENT: Atraumatic and Moist Mucous Membranes
Respiratory: Clear to Auscultation
Cardiac: Regular Rhythm and S1/S2
GI: Soft, Nontender and Nondistended
Genito-urinary: Nephrostomy Tubes (Bilateral with clear urine, no hematuria )
Musculoskeletal: No Cyanosis and No Edema
Neuro: Oriented and Nonfocal/Grossly Intact; Negative Tremors, Slurred Speech or Facial Droop
Hematologic / Lymphatic: No Lymphadenopathy
Psych: Calm and Intact Judgement/Insight
Data Reviewed
-
CT Scan: Image personally visualized and interpreted and Report Reviewed by me
Labs: Labs Reviewed by me
[2024-01-19 14:54] VITALS: BP 165/92
[2024-01-19] MEDS: ROCEPHIN 1000 MG IV (14:59)
[2024-01-19] MEDS: STERILE WATER FOR INJECTION 10 ML IV (15:00)
[2024-01-19] MEDS: TYLENOL 325 MG PO (20:57)
[2024-01-19] MEDS: MELATONIN 5 MG PO (20:58)
[2024-01-19 23:34] VITALS: BP 141/87
[2024-01-20] MEDS: HEPARIN 5000 UNITS SC ×2 (00:36→08:32)
[2024-01-20] MEDS: SENOKOT-S 1 TABLET PO (05:18)
[2024-01-20] MEDS: ROXICODONE 10 MG PO ×2 (05:18→12:52)
[2024-01-20] MEDS: TYLENOL 325 MG PO ×2 (05:19→12:51)
[2024-01-20 05:29] VITALS: BMI 18.7
[2024-01-20 06:15] LABS: Hemoglobin 10.6 g/dL (12.0-16.0); Mean Corp Hgb Conc. 33.1 g/dL (33.0-37.0); Mean Corpuscular Hgb 30.6 pg (27.0-31.0); Mean Corpuscular Volume 92.5 fL (81.0-99.0); Mean Platelet Volume 9.2 fL (7.4-10.4); Platelet Count 308 10^3/uL (130-400); Red Blood Cell Count 3.46 10^6/uL (4.20-5.40); Red Cell Dist. Width 12.4 % (11.5-14.5); White Blood Cell Count 5.5 10^3/uL (4.8-10.8)
[2024-01-20 06:33] LABS: Vancomycin Random 15.6 ug/ml
[2024-01-20 06:38] LABS: Blood Urea Nitrogen 38 mg/dl (7-17); Calcium 9.4 mg/dl (8.4-10.2); Carbon Dioxide 27 mmol/L (22-30); Chloride 101 mmol/L (98-107); Estimated Creatinine Clearance 23 ml/min; Glucose 99 mg/dl (70-99); Potassium 4.5 mmol/L (3.5-5.1); Sodium 136 mmol/L (135-145); eGFR 28.84
[2024-01-20 07:25] VITALS: BP 168/95
--- NOTE | 2024-01-20 09:01 | W.PN.URO.CBU ---
Today's Communication / Plan
-
treat UTI
outpt f/u at [facility]
Assessment / Plan
-
locally advanced bladder cancer with bilateral ureteral obstruction requiring percs
chemo at [facility]- recent PET with excellent response
perc tube obstruction/UTI
pt improving
percs changed yesterday
citrobacter uti- would rec outpt 10 day course of atnibx
has f/u at [facility] scheduled next week
Diagnosis
-
Date of Service: January 20, 2024
-
Patient Diagnosis:
locally advance bladder cancer- undergoing chemo at [facility]
bilateral ureteral obstruction s/p percs- left kidney functional/right kidney marginal
UTI
Subjective
-
pt feeling beter
no fevers
wbc normalized- cr trending toward baseline
some light pink urine- not unexpected
ucx + for citrobacter
Objective
-
Vital Signs
Temp Pulse Resp BP Pulse Ox
97.8 F 60 14 168/95 96
01/20/24 07:25 01/20/24 07:25 01/20/24 07:25 01/20/24 07:25 01/20/24 07:25
Intake and Output
01/19/24 01/20/24 01/21/24
06:59 06:59 06:59
Intake Total 1530 / 1530 480 / 480
Output Total 1100 / 1100 1934
Balance 430 / 430 -1455 / -1455
Intake:
Oral fluids 1530 / 1530 480 / 480
Output:
Urinary Drain Output (Total) 1100 / 1100 1934
Left Nephrostomy 500 / 500 1365 / 1365
Right Nephrostomy 600 / 600 570 / 570
Laboratory Results
01/20/24 05:37
01/20/24 05:37
Review of Systems
-
Constitutional: Fatigue
Respiratory: No Symptoms
Cardiac: No Symptoms
Abdomen/GI: No Symptoms
Physical Exam
-
General - no acute distress
Abdomen - soft, non-tender, percs in place
--- NOTE | 2024-01-20 11:38 | W.PN.HOSP.TC ---
Addendum entered and electronically signed by Bill Bautista MD 01/20/24 18:15:
[id number]
Addendum entered and electronically signed by Bill Bautista MD 01/20/24 17:18:
BMI 18.7, underweight
Acute renal failure on CKD 4
Hyponatremia, POA, now resolved
Original Note:
Today's Communication/Plan
-
Cefdinir 300mg BID x 10 day
F/u [facility] next week
bmp in 5 days with pcp
Assessment / Plan
Assessment / Plan
Physical exam:
General: Awake, alert and oriented x3, not in distress and holds appropriate conversation.
HEENT: No active discharge, ecchymosis or bruising, moist lips, tongue and mucous membrane.
Eyes: No discharge or red conjunctiva, no nystagmus, pupils are reactive and equal
Neck:Supple, no JVD no bruit no goiter.
Respiratory: Normal AP contour and diameter, normal chest wall movement, normal respiratory effort, no respiratory distress,
Lungs: Good air entry bilaterally, no wheezing or rhonchi, no rales or crackles
Heart: S1, S2 regular, normal rate, no added sound.
Genitourinary:
Bilateral nephrostomy tube in the left bag draining clear urine
Gastrointestinal: Positive bowel sounds, soft, nontender, no guarding or rigidity or organomegaly
Musculoskeletal: , no chest wall abnormality or tenderness.� All joints and extremities have good range of motion, no muscle tenderness or any joint swelling or tenderness.
Extremities: No pitting edema, good peripheral pulses, good range of motion
Skin: Warm and dry, no ulceration, normal color.�
Neurological: Awake, alert and oriented x3, no facial droop speech clear and comprehensive, good muscle tone, normal sensory and motor function
Psychiatric: Normal mood, normal thought and judgment, normal affect,
78F with bladder cancer with bilateral ureteral obstruction and chronic indwelling b/l nephrostomy admitted with UTI and purelent drainage/obstruction of R nephrostomy
#Complicated UTI, Citrobacter freundii
#Bilateral nephrostomy tubes
� Exchanged nephrostomy tube today
� Continue Rocephin, -switch to cefdinir 300mg BID to continue 10 day course
- has f/u at [facility] scheduled next week
#ANDRE
-2/2 to complicated UTI
-improving with treatment above
-F/u BMP in 5 days with pcp
All discussed with the patient in detail and expressed understanding
CODE STATUS full code
DVT prophylaxis Lovenox
More than 30 minutes spent in discharge including
Final examination of the patient
Summarizing hospital stay
Instructions for continuing care to all relevant caregivers
Preparation of discharge records, prescriptions, and referral forms
Total time spent (35 in minutes):
Anticipated Discharge: Today
Subjective/Interval History
-
Date of Service: January 20, 2024
no acute events
Objective Data
-
Labs:
Laboratory Results
01/20/24
05:37
WBC 5.5
Hgb 10.6 L
Hct 32.0 L
Plt Count 308
Sodium 136
Potassium 4.5
Chloride 101
Carbon Dioxide 27
BUN 38 H
Creatinine 1.8 H
Glucose 99
Calcium 9.4
Vital Signs:
Vital Signs
Temp Pulse Resp BP Pulse Ox
97.8 F 60 14 168/95 96
01/20/24 07:25 01/20/24 07:25 01/20/24 07:25 01/20/24 07:25 01/20/24 10:27
I&O
01/19/24 01/20/24 01/21/24
06:59 06:59 06:59
Intake Total 1530 / 1530 480 / 480
Output Total 1100 / 1100 1935 / 1935
Balance 430 / 430 -1455 / -1455
Review of Systems
-
History Source: Patient
All other systems: Not reviewed unless documented
Data Reviewed
-
CT Scan: Image personally visualized and interpreted and Report Reviewed by me
Labs: Labs Reviewed by me
--- NOTE | 2024-01-20 11:40 | W.DS.TRANS ---
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
-
Discharge Instructions:
Discharge Diagnosis/Procedures
#Complicated UTI
#Bilateral nephrostomy tube exchange
Diet Low Fat,Low Cholesterol
Blood Work bmp in 5 days with pcp
Instructions:
Stand-Alone Forms:
Changes to Home Medications: Yes
Discharge Medications:
DC Medications w/original date entered in [employer]
oxycodone-acetaminophen 10 mg-325 mg tablet 1 tab PO Q6HPRN PRN severe pain 01/02/23
ashwagandha extract 120 mg capsule 120 mg PO DAILY Supplement 01/17/24
calcium carbonate 500 mg calcium (1,250 mg) tablet 500 mg PO DAILY Supplement 01/17/24
cholecalciferol (vitamin D3) 25 mcg (1,000 unit) tablet (Vitamin D3) 25 mcg PO DAILY Supplement 01/17/24
coQ10 (ubiquinol) 100 mg capsule 200 mg PO DAILY Supplement 01/17/24
lutein 10 mg tablet 10 mg PO DAILY Supplement 01/17/24
omega 1-hqd-mbr-fish oil 1,000 mg (120 mg-180 mg) capsule (Fish Oil) 1 cap PO DAILY Supplement 01/17/24
polyethylene glycol 3350 17 gram oral powder packet (Miralax) 17 g PO DAILYPRN PRN constipation 01/17/24
therapeutic multivitamin 1 tab PO DAILY Supplement 01/17/24
vitamin E 268 mg (400 unit) capsule 268 mg PO DAILY Supplement 01/17/24
vitamin K2 45 mcg capsule 45 mcg PO DAILY Supplement 01/17/24
cefdinir 300 mg capsule 300 mg PO BID 10 days #20 caps 01/20/24
Home Medication Changes
cefdinir 300 mg capsule 300 mg PO BID 10 days #20 caps 01/20/24
Pending Results: No
--- NOTE | 2024-01-20 12:07 | CM ---
Patient has been medically cleared for discharge to home with [facility] services ([phone]). . will transport home.
--- NOTE | 2024-01-20 12:54 | VNURNOTE ---
Home Health Liaison spoke with patient by phone at 1250 to discuss [facility] nurse/therapy, visits, schedule and homebound status. Patient is agreeable and understands that visits at home will be 2-3 x per week to assess and teach medical management and
PCN management.
Patient is aware that [facility] will contact her for start of care in 1-2 days after discharge from . Patient's spouse has been able to assist with PCN tubes in past.
[facility] referral updated with intake.
[2024-01-20] MEDS: ROCEPHIN 1000 MG IV (13:50)
[2024-01-20] MEDS: STERILE WATER FOR INJECTION 10 ML IV (13:51)
== END 2024-01-20 15:26 | disposition home health service (06) | DRG 699 ==
LOC: 2 NORTH 18:09
PROVIDERS: Radiology Vascular & Interventional Radiology; Registered Nurse; ADMITTING PHYSICIAN Internal Medicine; ATTENDING PHYSICIAN Internal Medicine; EMERGENCY PHYSICIAN Emergency Medicine; OTHER PHYSICIAN Urology
PROC: 0T25X0Z Change Drainage Device in Kidney, External Approach (ICD-10-PCS; 2024-01-18)
DX: T83.092A Other mechanical complication of nephrostomy catheter, initial encounter (principal); N13.6 Pyonephrosis; N17.9 Acute kidney failure, unspecified; N18.4 Chronic kidney disease, stage 4 (severe); N39.0 Urinary tract infection, site not specified; Z68.1 Body mass index [BMI] 19.9 or less, adult; Z85.51 Personal history of malignant neoplasm of bladder; Y73.2 Prosthetic and other implants, materials and accessory gastroenterology and urology devices associated with adverse incidents; C67.9 Malignant neoplasm of bladder, unspecified; R63.6 Underweight
CPT/HCPCS: 50435; 74176; 80048; 80053; 80202; 81003; 81015; 83605; 85025; 85027; 86803; 87040; 87070; 87077; 87086; 87147; 87186; 96361; 96374; 99285; C1729; C1769

== ENCOUNTER → 2024-02-01 11:34 | Outpatient (REF) | payer MEDICARE, SELFPAY | LOC: HWRAD 11:34 | PROVIDERS: ATTENDING PHYSICIAN Physician Assistant; FAMILY PHYSICIAN Family Medicine | DX: C67.9 Malignant neoplasm of bladder, unspecified (principal) | CPT/HCPCS: 71250; 74176 ==

== ENCOUNTER → 2024-04-11 12:24 | Outpatient (REF) | payer MEDICARE, SELFPAY ==
[2024-04-11 12:49] VITALS: BP 131/100; BP_SYST 61
== END ==
LOC: RADI 12:24
PROVIDERS: ATTENDING PHYSICIAN Radiology Vascular & Interventional Radiology; FAMILY PHYSICIAN Family Medicine; REFERRING PHYSICIAN Specialist
DX: Z43.6 Encounter for attention to other artificial openings of urinary tract (principal); N13.6 Pyonephrosis
CPT/HCPCS: 50435; C1729; C1769

== ENCOUNTER → 2024-08-08 12:08 | Outpatient (REF) | payer MEDICARE, SELFPAY ==
[2024-08-08 12:45] VITALS: BP 171/92; BP_SYST 60
== END ==
LOC: RADI 12:08
PROVIDERS: ATTENDING PHYSICIAN Radiology Vascular & Interventional Radiology; FAMILY PHYSICIAN Family Medicine
DX: Z43.6 Encounter for attention to other artificial openings of urinary tract (principal); N13.6 Pyonephrosis
CPT/HCPCS: 50435; C1729; C1769

== ENCOUNTER 2024-12-14 14:17 | Emergency (ER) | payer MEDICARE, BC, SELFPAY ==
[2024-12-14 14:19] VITALS: BP 186/110
[2024-12-14 14:50] LABS: % Basophils 0.3 % (0-2); % Eosinophils 0.2 % (0-6); % Immature Granulocytes 0.3 % (0-0.5); % Lymphocytes 3.2 % (20.5-51.1); % Monocytes 6.1 % (1.7-9.3); % Neutrophils 89.9 % (42.2-75.2); Absolute Lymphocytes 0.2 10^3/uL (1.2-3.4); Absolute Monocytes 0.4 10^3/uL (0.1-0.6); Absolute Neutrophils 5.9 10^3/uL (1.4-6.5); Hematocrit 35.2 % (37.0-47.0); Hemoglobin 11.6 g/dL (12.0-16.0); Mean Corpuscular Hgb 33.7 pg (27.0-31.0); Mean Corpuscular Volume 102.3 fL (81.0-99.0); Mean Platelet Volume 9.2 fL (7.4-10.4); Nucleated Red Blood Cells % 0 %; Platelet Count 280 10^3/uL (130-400); Red Blood Cell Count 3.44 10^6/uL (4.20-5.40); Red Cell Dist. Width 12.1 % (11.5-14.5); White Blood Cell Count 6.6 10^3/uL (4.8-10.8)
[2024-12-14 15:03] LABS: ALT (SGPT) 14 U/L (0-35); AST (SGOT) 26 U/L (14-36); Albumin 4.4 g/dl (3.5-5.0); Alkaline Phosphatase 223 U/L (38-126); Blood Urea Nitrogen 22 mg/dl (7-17); Calcium 9.6 mg/dl (8.4-10.2); Carbon Dioxide 22 mmol/L (22-30); Chloride 99 mmol/L (98-107); Glucose 107 mg/dl (70-99); Potassium 4.5 mmol/L (3.5-5.1); Sodium 133 mmol/L (135-145); Total Bilirubin 0.5 mg/dl (0.2-1.3); Total Protein 7.4 g/dl (6.3-8.2); eGFR 46.62
[2024-12-14 15:09] LABS: PT 13.5 Sec (11.4-14.6)
[2024-12-14 15:10] LABS: APTT 30.7 Sec (23.4-35.0)
[2024-12-14 17:09] VITALS: BMI 19.7
[2024-12-14 17:10] VITALS: BP 173/101
--- NOTE | 2024-12-14 17:54 | ED.GENMED ---
History of Present Illness
<Beatrice Garcia MD, Resident - Last Filed: 12/15/24 00:11>
General
Chief Complaint: Female Wound Specialist/Gu symptoms
Source: patient
Exam Limitations: none
Time Seen by Provider: 12/14/24 17:20
Nursing documentation reviewed up to this point in time: agreed with
History of Present Illness
History of Present Illness:
79yo F with PMH bladder cancer (reports mets to brain, lung) who presents from home to ED for bleeding. She says bleeding began 5-6 days ago. She has been saturating pads 4-6 times per day with bright red blood, and passing small clots. Not
associated with urination-- she has nephrostomy tubes and denies change to quality of urine. She denies any vaginal penetration or pelvic trauma. She as RLQ pain at baseline, which has been worse over the past few days. She also reports shortness of
breath with activity and rest, productive cough with white sputum, intermittent vaginal pain, overall weakness, and knee/shoulder pain over past few days.
Past History
<Beatrice Garcia MD, Resident - Last Filed: 12/15/24 00:11>
Past History
ED Past Medical History: Cancer (bladder cancer), HTN and Renal failure
ED Past Surgical History: Appendectomy, Gynecological (Hysterectomy) and Urological (nephrostomy )
Patient has exhibited threatening behavior?: No
Social History
Tobacco: Non-smoker
Alcohol: None
Drug: None
Personal:
Living: with family
Employment: Retired
Family History
Family History: Other (noncontributory)
Review of Systems
<Beatrice Garcia MD, Resident - Last Filed: 12/15/24 00:11>
Review of Systems
Allergies reviewed?: Yes
Constitutional: Reports fatigue; Denies fever or chills
EENT: Reports no symptoms
Respiratory: Reports cough and trouble breathing; Denies hemoptysis
Cardiac: Reports no symptoms; Denies chest pain, diaphoresis, palpitations or syncope
ABD/GI: Reports abdominal pain; Denies nausea, diarrhea, constipated, bloody stools or black stools
: Reports bleeding and other (see HPI)
Musculoskeletal: Reports joint pain (knees, shoulders); Denies muscle pain or edema
Skin: Reports no symptoms
Neurological: Reports weakness; Denies dizzy or headache
Endocrine: Reports no symptoms
Hematologic/Lymphatic: Reports bleeding
Psychiatric: Reports no symptoms
Phy Exam
<Beatrice Garcia MD, Resident - Last Filed: 12/15/24 00:11>
General Physical Exam
General Presentation: well appearing and no apparent distress
General age: appears stated age
General Skin: warm and dry
General Habitus: elderly
General Mental: alert
General Hydration: appears well hydrated
Cardiovascular Exam
Cardiovascular Exam: regular rate/rhythm, no edema, no JVD and no murmur
Pulmonary Exam
Pulmonary Exam: lungs clear, no respiratory distress, no crackles, no rhonchi, no wheezing, no cough and other (nonlabored breathing)
Oxygen Status: room air
Gastrointestinal Exam
Gastrointestinal Exam: normal bowel sounds, soft, non distended, hepatomegaly and tender (tender to palpation RLQ/RUQ )
Genitourinary Exam Female
Exam Female: no vaginal discharge and other (external exam performed chaperoned by nursing; small amount of bright red blood present at introitus, no sign of ongoing vaginal bleeding, no lesions/abrasions externally; blood appears to be from
urethral source )
Neurological Exam
Neurological Exam: alert, oriented x3 and speech normal
Musculoskeletal Exam
Musculoskeletal Exam: no edema and other (nontender calves)
Psychiatric Exam
Psychiatric Exam: normal mood/affect
Course
<Beatrice Garcia MD, Resident - Last Filed: 12/15/24 00:11>
Orders/Labs/Results
Orders:
Orders
12/14/24 14:22
EKG [Electrocardiogram (*1)] Urgent
Reason for Study: Shortness of Breath
EKG- Treatment ONCE
12/14/24 14:31
Type+Screen Urgent
Complete Blood Count/With Diff Urgent
Comprehensive Metabolic Panel Urgent
PTT Urgent
Prothrombin Time Urgent
12/14/24 17:59
Straight cath- Treatment ONCE
12/14/24 18:01
Vital Signs- Treatment ONCE
Frequency: Once
12/14/24 18:44
CT Abd/pelvis W Iv Cont Urgent
Comment:
Reason For Exam: pelvic pain, bleeding, h/o bladder cancer
12/14/24 18:45
CR Chest - 2 Views Urgent
Comment:
Reason For Exam: shortness of breath
Abnormal Lab Results
12/14/24
14:31
RBC 3.44 L 10^6/uL
(4.20-5.40)
Hgb 11.6 L g/dL
(12.0-16.0)
Hct 35.2 L %
(37.0-47.0)
MCV 102.3 H fL
(81.0-99.0)
MCH 33.7 H pg
(27.0-31.0)
Absolute Lymphs (auto) 0.2 L 10^3/uL
(1.2-3.4)
Neutrophils % 89.9 H %
(42.2-75.2)
Lymphocytes % 3.2 L %
(20.5-51.1)
Sodium 133 L mmol/L
(135-145)
BUN 22 H mg/dl
(7-17)
Creatinine 1.2 H mg/dL
(0.6-1.0)
Glucose 107 H mg/dl
(70-99)
Alkaline Phosphatase 223 H U/L
(38-126)
12/14/24 14:31
12/14/24 14:31
Vital Signs
Initial and Last Documented VS:
Initial Vital Signs
Temp Pulse Resp BP Pulse Ox
98.2 F 80 16 186/110 98
12/14/24 14:19 12/14/24 14:19 12/14/24 14:19 12/14/24 14:19 12/14/24 14:19
Last Documented Vital Signs
Temp Pulse Resp BP Pulse Ox
98.2 F 71 19 174/94 95
12/14/24 14:19 12/14/24 20:45 12/14/24 20:00 12/14/24 23:00 12/14/24 23:00
<Ken Doran, DO - Last Filed: 12/14/24 23:23>
Orders/Labs/Results
Orders:
Orders
12/14/24 14:22
EKG [Electrocardiogram (*1)] Urgent
Reason for Study: Shortness of Breath
EKG- Treatment ONCE
12/14/24 14:31
Type+Screen Urgent
Complete Blood Count/With Diff Urgent
Comprehensive Metabolic Panel Urgent
PTT Urgent
Prothrombin Time Urgent
12/14/24 17:59
Straight cath- Treatment ONCE
12/14/24 18:01
Vital Signs- Treatment ONCE
Frequency: Once
12/14/24 18:44
CT Abd/pelvis W Iv Cont Urgent
Comment:
Reason For Exam: pelvic pain, bleeding, h/o bladder cancer
12/14/24 18:45
CR Chest - 2 Views Urgent
Comment:
Reason For Exam: shortness of breath
Abnormal Lab Results
12/14/24
14:31
RBC 3.44 L 10^6/uL
(4.20-5.40)
Hgb 11.6 L g/dL
(12.0-16.0)
Hct 35.2 L %
(37.0-47.0)
MCV 102.3 H fL
(81.0-99.0)
MCH 33.7 H pg
(27.0-31.0)
Absolute Lymphs (auto) 0.2 L 10^3/uL
(1.2-3.4)
Neutrophils % 89.9 H %
(42.2-75.2)
Lymphocytes % 3.2 L %
(20.5-51.1)
Sodium 133 L mmol/L
(135-145)
BUN 22 H mg/dl
(7-17)
Creatinine 1.2 H mg/dL
(0.6-1.0)
Glucose 107 H mg/dl
(70-99)
Alkaline Phosphatase 223 H U/L
(38-126)
12/14/24 14:31
12/14/24 14:31
Vital Signs
Initial and Last Documented VS:
Initial Vital Signs
Temp Pulse Resp BP Pulse Ox
98.2 F 80 16 186/110 98
12/14/24 14:19 12/14/24 14:19 12/14/24 14:19 12/14/24 14:19 12/14/24 14:19
Last Documented Vital Signs
Temp Pulse Resp BP Pulse Ox
98.2 F 71 19 174/94 95
12/14/24 14:19 12/14/24 20:45 12/14/24 20:00 12/14/24 23:00 12/14/24 23:00
<Beatrice Garcia MD, Resident - Last Filed: 12/15/24 00:11>
MDM/Problems Addressed
Differential Diagnosis Includes:
bleeding, suspect from worsening local invasion of bladder cancer
Less likely vaginal source given physical exam findings
shortness of breath may be related to reported lung metastasis vs URI vs pneumonia
MDM/Problems Addressed:
79yo F with PMH metastatic bladder cancer who presents to ED for bleeding, worsening pelvic pain, SOB
Straight catheterization +blood-- bleeding from urinary source, not vaginal. Suspect due to worsening local invasion of bladder cancer.
Hemodynamically stable, no hypotension/tachycardia. Hgb 11.6, appears to be at baseline.
Will check abd/pel ct and chest xray. Reviewed with patient and that imaging may not show definitive source of bleeding.
Patient goal is to return to [facility] for additional biopsy and treatment attempt, though she reports her cancer is inoperable and untreatable.
Await further results.
<Beatrice Garcia MD, Resident - Last Filed: 12/15/24 00:11>
*Critical Care Note
Total Time (30-74mins, 75-104mins- exclusive of procedures): Not Applicable
<Beatrice Garcia MD, Resident - Last Filed: 12/15/24 00:11>
Update Note
Update Note:
Abd/pelvis CT and chest xray showed progressive metastatic disease compared to prior imaging at . CD of images/reports given to patient. Long discussion at bedside with patient, , and Dr. Doran regarding progression of cancer. Reviewed
that most like the bleeding from her urethra is most likely from her cancer and unfortunately there is no intervention we can offer in ER. Her hemoglobin is stable and no hypotension/tachycardia-- not losing a hemodynamically significant amount of
blood. Will discharge home for continued outpatient management. Patient already follows with palliative care, has pain management through her PCP, and says she will see team at [facility] next week. Reviewed return to ED precautions. She and her
are understanding and agreeable with plan.
ED Attending Note
<Beatrice Garcia MD, Resident - Last Filed: 12/15/24 00:11>
-
Portions of this chart may have been created with voice recognition software.� Occasional wrong word or��sound alike� substitutions may have occurred due to the inherent limitations of voice recognition software.
<Ken Doran, - Last Filed: 12/14/24 23:23>
ED Attending Note
Patient seen and examined by attending physician: Yes
I performed a history and physical exam of patient and discussed management with resident, I reviewed resident's note and agree with documented findings and plan of care.: Yes
ED Attending Note:
79-year-old female with unfortunate history of metastatic bladder cancer. Presents with 'vaginal bleeding'. Patient has nephrostomy tubes bilaterally she does not make urine. She has noted blood over the last 4 days. She was to see her
oncologist tomorrow but decided come to the hospital because her was concerned and wanted no what to do. She admits that her cancer treatment has been mostly to palliative and she was told that it is end-stage. Patient does report lower
abdominal discomfort and pain in the right pelvics. She also reports feeling a little bit short of breath. No chest pain. No pleuritic pain. No hemoptysis. Exam: She clearly has blood at the urethral meatus on exam. Vagina otherwise
unremarkable. Abdomen with moderate lower pelvic tenderness. Found to be hypertensive. Assessment plan: End-stage metastatic bladder cancer. No hypoxia or tachypnea to suggest PE. Unfortunately there will likely be nothing to do for long-term
care. I do recommend close follow-up with oncology. Patient is stable. Hemoglobin okay.
Discharge Plan
Departure
Patient Disposition: Home (Routine Discharge)
Date of Disposition: 12/14/24
Time of Disposition: 23:25
Patient with high blood pressure during this ER visit?: Yes
Discharge Problem:
Bleeding from the genitourinary system, Bladder cancer
Instructions: BLOOD PRESSURE
Prescriptions:
No Action
oxycodone-acetaminophen 10-325 mg Tablet
1 tab PO Q6HPRN PRN (Reason: severe pain)
therapeutic multivitamin Tablet
1 tab PO DAILY
calcium carbonate 500 mg calcium (1,250 mg) Tablet
500 mg PO DAILY
vitamin E 268 mg (400 unit) Capsule
268 mg PO DAILY
cholecalciferol (vitamin D3) [Vitamin D3] 25 mcg (1,000 unit) Tablet
25 mcg PO DAILY
lutein 10 mg Tablet
10 mg PO DAILY
omega 1-avh-twj-fish oil [Fish Oil] 1,000 mg (120 mg-180 mg) Capsule
1 cap PO DAILY
coQ10 (ubiquinol) 100 mg Capsule
200 mg PO DAILY
vitamin K2 45 mcg Capsule
45 mcg PO DAILY
ashwagandha extract 120 mg Capsule
120 mg PO DAILY
polyethylene glycol 3350 [Miralax] 17 gram powder in packet
17 g PO DAILYPRN PRN (Reason: constipation)
cefdinir 300 mg capsule
300 mg PO BID 10 Days Qty: 20 0RF
Referrals:
David Perrin DO [Family Provider] - Follow up in 2-3 days (Call your Primary Care Provider to schedule follow up appointment after being seen in ED, and to discuss your pain medication.)
Activity Restrictions/Additional Instructions:
You were seen in the Emergency Room for bleeding from your urinary system, most likely due to your bladder cancer.
Your CT scan showed that the cancer spread compared to prior imaging at [facility]. Your chest xray also showed cancer spread.
Your blood tests showed that your hemoglobin is stable.
Please all [facility] tomorrow to update them on your Emergency Room visit, and to schedule a follow up appointment within a few days.
You were given a CD with the images and reports for the CT scan and xray. Please bring this CD with you to your next [facility] appointment.
You should also call your Primary Care Provider to schedule a follow up appointment and discuss your pain medications.
Please return to the ER for worsening bleeding (saturating a pad per hour) or bleeding associated with lightheadedness/dizziness or racing heart. Also return to the ER if you have chest pain, difficulty breathing, confusion, or new concerns.
Interventions
Interventions:
*Risk Screen - Suicide Last Done: 12/14/24 14:19
*General Assessment Last Done: 12/14/24 17:16
*Neglect/Abuse Screening Last Done: 12/14/24 14:19
ED- Fall Risk Assessment Last Done: 12/14/24 23:22
*ED COVID-19 Vaccine History Last Done: 12/14/24 17:16
*Nursing Disposition Last Done: 12/14/24 23:22
ED-Female Genitourinary Assessment Last Done: 12/14/24 17:16
Discharge Date and Time
Discharge Date/Time: 12/14/24 23:36
Print Language: URDU
[2024-12-14 18:00] VITALS: BP 176/103
[2024-12-14 20:00] VITALS: BP 173/96
[2024-12-14 23:00] VITALS: BP 174/94
== END 2024-12-14 23:36 | disposition home or self-care (01) ==
LOC: EMR 14:17
PROVIDERS: Emergency Medicine; EMERGENCY PHYSICIAN Emergency Medicine; FAMILY PHYSICIAN Family Medicine
DX: C67.9 Malignant neoplasm of bladder, unspecified (principal); I10 Essential (primary) hypertension; C79.31 Secondary malignant neoplasm of brain; C78.00 Secondary malignant neoplasm of unspecified lung; Z93.6 Other artificial openings of urinary tract status; Z90.710 Acquired absence of both cervix and uterus
CPT/HCPCS: 99285; 71046; 74177; 80053; 85025; 85610; 85730; 86850; 86900; 86901; 93005; Q9967

== ENCOUNTER → 2024-12-27 12:29 | Outpatient (REF) | payer OTHER, SELFPAY ==
[2024-12-27 13:00] VITALS: BP 158/82; BP_SYST 67
[2024-12-27 13:52] VITALS: BP_SYST 74
== END ==
LOC: RADI 12:29
PROVIDERS: ATTENDING PHYSICIAN Radiology Vascular & Interventional Radiology; FAMILY PHYSICIAN Family Medicine
DX: Z43.6 Encounter for attention to other artificial openings of urinary tract (principal); N13.5 Crossing vessel and stricture of ureter without hydronephrosis
CPT/HCPCS: 50435; C1729; C1769

== ENCOUNTER → 2025-03-03 11:01 | Outpatient (REF) | payer OTHER, SELFPAY | LOC: CLAB 11:01 | PROVIDERS: ATTENDING PHYSICIAN Internal Medicine | DX: C67.9 Malignant neoplasm of bladder, unspecified (principal) | CPT/HCPCS: 88360 ==

== ENCOUNTER 2025-04-21 03:24 | Inpatient (IN) | payer OTHER, SELFPAY ==
[2025-04-20] VITALS (7 sets, daily range): BP systolic 140–147; BP diastolic 97–104; BMI 16.3
[2025-04-20 22:35] LABS: % Basophils 0.1 % (0-2); % Immature Granulocytes 0.7 % (0-0.5); % Lymphocytes 0.3 % (20.5-51.1); % Monocytes 3.5 % (1.7-9.3); % Neutrophils 95.4 % (42.2-75.2); Absolute Immature Granulocytes 0.2 10^3/uL (0-0.05); Absolute Lymphocytes 0.1 10^3/uL (1.2-3.4); Absolute Monocytes 0.8 10^3/uL (0.1-0.6); Absolute Neutrophils 22.7 10^3/uL (1.4-6.5); Hematocrit 33.3 % (37.0-47.0); Hemoglobin 10.8 g/dL (12.0-16.0); Mean Corp Hgb Conc. 32.4 g/dL (33.0-37.0); Mean Corpuscular Hgb 31.4 pg (27.0-31.0); Mean Corpuscular Volume 96.8 fL (81.0-99.0); Nucleated Red Blood Cells % 0 %; Platelet Count 339 10^3/uL (130-400); Red Blood Cell Count 3.44 10^6/uL (4.20-5.40); Red Cell Dist. Width 17.3 % (11.5-14.5); White Blood Cell Count 23.8 10^3/uL (4.8-10.8)
[2025-04-20 22:37] LABS: ALT (SGPT) 18 U/L (0-35); AST (SGOT) 42 U/L (14-36); Albumin 3.7 g/dl (3.5-5.0); Alkaline Phosphatase 477 U/L (38-126); Blood Urea Nitrogen 48 mg/dl (7-17); Calcium 8.9 mg/dl (8.4-10.2); Carbon Dioxide 28 mmol/L (22-30); Chloride 96 mmol/L (98-107); Estimated Creatinine Clearance 28 ml/min; Glucose 109 mg/dl (70-99); Potassium 3.4 mmol/L (3.5-5.1); Sodium 135 mmol/L (135-145); Total Bilirubin 0.7 mg/dl (0.2-1.3); Total Protein 6.7 g/dl (6.3-8.2); eGFR 42.35
[2025-04-21] VITALS (28 sets, daily range): BP systolic 94–190; BP diastolic 88–115; BMI 16.3
[2025-04-21] MEDS: NSS 1000 IV (00:07)
[2025-04-21] MEDS: MORPHINE SULFATE 2 MG IV ×8 (00:12→22:15)
--- NOTE | 2025-04-21 00:17 | ED.GENMED ---
History of Present Illness
General
Chief Complaint: Catheter/Tube Problem
Source: patient and spouse
Time Seen by Provider: 04/20/25 21:24
History of Present Illness
History of Present Illness:
Patient to ED for eval of right nephrostomy tube. She has a history of bladder Ca with mets. Hansa her noted that the right tube was no longer draining. He feels that the tube has moved out approx 1 inch, it is no longer sutured in
place. He reports that she has been increasingly weak today. Brought to ED via EMS for eval.
Past History
Past History
ED Past Medical History: Cancer (bladder cancer), HTN and Renal failure
ED Past Surgical History: Appendectomy, Gynecological (Hysterectomy) and Urological (nephrostomy )
Patient has exhibited threatening behavior?: No
Social History
Tobacco: Non-smoker
Alcohol: None
Drug: None
Personal:
Living: with family
Employment: Retired
Family History
Family History: Other (noncontributory)
Review of Systems
Review of Systems
Allergies reviewed?: Yes
All Other Systems: ROS reviewed and negative except as documented in HPI and ROS
Constitutional: Reports no symptoms
EENT: Reports no symptoms
Respiratory: Reports no symptoms
Cardiac: Reports no symptoms
ABD/GI: Reports no symptoms
: Reports other (Right nephrostomy tube not draining, possibly out of place.)
Musculoskeletal: Reports no symptoms
Skin: Reports no symptoms
Neurological: Reports weakness
Psychiatric: Reports no symptoms
Phy Exam
General Physical Exam
General Presentation: mild distress
General age: appears stated age
General Skin: warm and dry
General Habitus: frail
General Mental: alert
Cardiovascular Exam
Cardiovascular Exam: regular rate/rhythm
Pulmonary Exam
Pulmonary Exam: lungs clear and no respiratory distress
Gastrointestinal Exam
Gastrointestinal Exam: normal bowel sounds, non tender and soft
Musculoskeletal Exam
Musculoskeletal Exam: full ROM and neuro vasc intact
Skin Exam
Skin Exam: normal color, warm/dry, no rash and other (Granulated area on left breast, partially displaced. Deep wound underneath. No active drainage. WOund culture obtained.)
Psychiatric Exam
Psychiatric Exam: normal mood/affect
Course
Orders/Labs/Results
Orders:
Orders
04/20/25 22:06
CMP [Comprehensive Metabolic Panel] Urgent
Complete Blood Count/With Diff Urgent
04/20/25 22:58
Renal Only US [US Renal Only W/O Bladder] Urgent
Comment:
Reason For Exam: right nephrostomy tube not draining
04/20/25 23:29
Lactic Acid Urgent
Blood Culture Urgent
SHILPA Source: Blood/Venous
Specimen Description:
04/20/25 23:31
0.9% Sodium Chloride 1000 ml [Nss] 1,000 ml IV BOLUS
04/21/25 00:11
Morphine Sulfate 2 mg .ROUTE .STK-MED ONE
04/21/25 00:12
Morphine Sulfate 2 mg IV NOW STA
04/21/25 00:23
Cefepime HCl [Maxipime] 2,000 mg IV NOW STA
04/21/25 00:46
Morphine Sulfate 2 mg .ROUTE .STK-MED ONE
04/21/25 00:52
Morphine Sulfate 2 mg IV NOW STA
04/21/25 00:54
Wound Culture [Wound/Abscess/Other Culture] Urgent
SHILPA Source: Breast
Specimen Description: Left
Date Specimen was Collected: 04/21/25
Time Specimen was Collected: 00:51
04/21/25 01:00
Flush (0.9% Sodium Chloride) [Flush (Nss)] See Dose Instructions IV PER PROTOCOL
04/21/25 02:48
Urinalysis Reflex To Culture Urgent
Date Specimen was Collected: 04/21/25
Time Specimen was Collected: 02:35
Urine Microscopic Reflex Cult Urgent
Urine Culture Urgent
SHILPA Source: U
Specimen Description:
Date Specimen was Collected: 04/21/25
Time Specimen was Collected: 02:35
04/21/25 03:06
Admit/Transfer Patient As Directed
Co-Sign Provider:
Level of Care: Inpatient admission
Assign to:: IMU- Intermediate Care
Physician / Group: Scout
Diagnosis: Dislodged R Urostomy Tube, Sepsis
Reason for Hospitalization: Dislodged R Urostomy Tube, Sepsis
Expected length of stay greater than two midnights?: Yes
ELOS- Estimated Length of Stay in days: 4
I certify the patient meets the requirements for IP care: Yes
PRN Pain Medication Management As Directed
May give lesser potent ordered pain med per pt: Yes
preference::
Protocol:: Medication orders for pain may be administered in a
manner that supports deferring to patient preference
when the pt is:
- Requesting an ordered lesser potent pain medication.
Least to most potent pain medications are defined
as: acetaminophen < NSAID < tramadol < opioids
(morphine, oxycodone, hydromorphone).
- Requesting a lesser dose of the same medication IF
ORDERED.
- Requesting a less intrusive route of administration
if both routes are prescribed by the provider (PO <
IV).
04/21/25 03:07
Code Status As Directed
Resuscitation Status: Do not resuscitate
Reached after discussion with pt or family/Healthcare POA: Yes
04/21/25 03:09
DNR Bracelet Application ONCE
04/21/25 03:14
CT Abd/pel (oral only)-DH Only Urgent
Comment:
Reason For Exam: Abd Distention / Pain
Iohexol [Omnipaque] See Protocol PO NOW STA
04/21/25 03:29
HYDROmorphone [Dilaudid] 0.5 mg IV Q4HPRN PRN
Oxycodone [Roxicodone] 5 mg PO Q6HPRN PRN moderate pain moderate pain
04/21/25 05:59
Acetaminophen [Tylenol] 650 mg PO Q4HPRN PRN
04/21/25 05:59
Consult Notification Routine
Specialty to Notify: IRAD (Interventional Radiology)
Date consulting provider notified: 04/21/25
Time consulting provider notified: 07:27
Notified:: Provider
IRAD CONSULT Routine
Consulting Provider: Christian Harrell
Was physician already notified: Yes
Procedure being ordered, including laterality if applicable: BL PCN exchange
Acknowledgement that appropriate orders are entered: N/A
WOUND/OSTOMY CONSULT Routine
Reason for Consult: L Breast Wound
Activity As Directed
Activity Level: Ambulate
With Assistance
Drains- Urinary As Directed
Type: Nephrostomy
Location: Left
I/O [Intake/ Output] As Directed
Frequency: Per unit guidelines
Pneumatic Compression Sleeves As Directed
Type: Knee high
Vital Signs As Directed
Frequency: Per unit guidelines
Oxygen Therapy [O2 Therapy] [RESP] Routine
Titrate/Wean O2 to maintain O2 sat greater than (%): 94
DX Deep Vein Thrombosis Video Routine
04/21/25 Breakfast
NPO
Allow oral meds: Yes
Allow clear liquids: Sips of Clears
CefTRIAXone [Rocephin] 1,000 mg IV Q24H
04/21/25 08:31
Complete Blood Count/No Diff IN AM
04/21/25 08:32
Basic Metabolic Panel IN AM
Abnormal Lab Results
04/20/25 04/21/25
22:06 02:48
WBC 23.8 H 10^3/uL
(4.8-10.8)
RBC 3.44 L 10^6/uL
(4.20-5.40)
Hgb 10.8 L g/dL
(12.0-16.0)
Hct 33.3 L %
(37.0-47.0)
MCH 31.4 H pg
(27.0-31.0)
MCHC 32.4 L g/dL
(33.0-37.0)
RDW 17.3 H %
(11.5-14.5)
Abs Immat Gran (auto) 0.2 H 10^3/uL
(0-0.05)
Absolute Neuts (auto) 22.7 H 10^3/uL
(1.4-6.5)
Absolute Lymphs (auto) 0.1 L 10^3/uL
(1.2-3.4)
Absolute Monos (auto) 0.8 H 10^3/uL
(0.1-0.6)
Immature Gran % 0.7 H %
(0-0.5)
Neutrophils % 95.4 H %
(42.2-75.2)
Lymphocytes % 0.3 L %
(20.5-51.1)
Potassium 3.4 L mmol/L
(3.5-5.1)
Chloride 96 L mmol/L
(98-107)
BUN 48 H mg/dl
(7-17)
Creatinine 1.3 H mg/dL
(0.6-1.0)
Glucose 109 H mg/dl
(70-99)
AST 42 H U/L
(14-36)
Alkaline Phosphatase 477 H U/L
(38-126)
Ur Occult Blood Reflex 3+ A
(Negative)
Urine Nitrite (Reflex) Positive A
(Negative)
Leukocyte Esterase Rfl 3+ A
(Negative)
Urine RBC 26-30 A /HPF
(0-2)
Urine WBC (Reflex) 80-90 A /HPF
(0-5)
Urine Bacteria (Reflex) Moderate A
(Negative)
Urine Albumin (Reflex) 3+ A
(Neg - Trace)
04/20/25 22:06
04/20/25 22:06
Vital Signs
Initial and Last Documented VS:
Initial Vital Signs
Temp Pulse Resp BP Pulse Ox
98.1 F 83 14 143/98 94
04/20/25 20:44 04/20/25 20:44 04/20/25 20:44 04/20/25 20:44 04/20/25 20:44
Last Documented Vital Signs
Temp Pulse Resp BP Pulse Ox
98.1 F 93 15 134/92 95
04/21/25 20:00 04/21/25 17:15 04/21/25 17:15 04/21/25 17:00 04/21/25 17:15
*Critical Care Note
Total Time (30-74mins, 75-104mins- exclusive of procedures): Not Applicable
Update Note
Update Note:
Patient to ED for possible dislodged right urostomy tube. US reveals right hydronephrosis, tube not visualized. VSS, she remains afebrile. Labs reviewed. WBC 23.8 noted, lactic and blood cutltures pending. Case discussed wt Dr. Vazquez who
requests IR consult for tube replacement in AM. Newcomb text sent to Dr. Harrell Patient will be admitted to hospitalist service. Cefepime ordered. There is an area of granulation over a breast biopsy site (performed 2 weeks ago. Underneathis a
deep ulceration, no active drainage. Wound culture obtained. reports she was started on doxycyline today, has had 1 dose.
ED Attending Note
-
Portions of this chart may have been created with voice recognition software.� Occasional wrong word or��sound alike� substitutions may have occurred due to the inherent limitations of voice recognition software.
Discharge Plan
Departure
Patient Disposition: Admit
Date of Disposition: 04/21/25
Time of Disposition: 00:24
Presentation/result/management discussed w/ accepting MD/DO: Hospitalist
Patient with high blood pressure during this ER visit?: No
Condition: Fair
Covid-19: Not Applicable
Discharge Problem:
Bladder cancer, Displacement of nephrostomy tube
Interventions
Interventions:
*Risk Screen - Suicide Last Done: 04/20/25 20:44
*General Assessment Last Done: 04/20/25 20:44
*Neglect/Abuse Screening Last Done: 04/20/25 20:44
*ED- Fall Risk Assessment Last Done: 04/21/25 05:20
*ED COVID-19 Vaccine History Last Done: 04/21/25 05:59
*Nursing Disposition Last Done: 04/21/25 05:20
ZD-Wbamzw-Jqjrlncitz Assessment Last Done: 04/20/25 22:57
ED-Female Genitourinary Assessment Last Done: 04/20/25 22:57
Discharge Date and Time
Discharge Date/Time: 04/21/25 05:20
[2025-04-21 00:45] LABS: Lactic Acid 1.7 mmol/L (0.7-2.0)
[2025-04-21] MEDS: MAXIPIME 2000 MG IV (00:55)
[2025-04-21 03:13] LABS: Urine Albumin 3+ (Neg - Trace); Urine Bilirubin Negative (Negative); Urine Character Slightly Cloudy (Clear); Urine Color Amber; Urine Glucose Negative (Negative); Urine Ketone Negative (Negative); Urine Leukocyte 3+ (Negative); Urine Nitrite Positive (Negative); Urine Occult Blood 3+ (Negative); Urine Urobilinogen Negative (Neg - 1+)
--- NOTE | 2025-04-21 03:16 | HPS.HSE ---
Family Physician
-
Family Physician: David Perrin
Chief Complaint
-
Tube Problem
History of Present Illness
Patient is a 79y F with PMH significant for bladder cancer with obstructive uropathy who presents to ED for evaluation of nephrostomy tube problem. History obtained from ED staff and from via phone. states that patient has been
somewhat confused and not acting herself for the past day or two. Today he noted that there appeared to be no urine in the R nephrostomy tube. He examined the area and found that the sutured area of the tube was about 2 inches from the skin and
was not affixed. He was concerned that the tube may have become dislodged and brought the patient to the ED for further evaluation.
notes that patient has had abdominal distention for the past 4-6 weeks. She has had chronic issues with constipation due to her narcotic pain medication - typically managed with OTC bowel medications at home.
In the ED, patient is complaining of abdominal pain and distention. She denies any N/V. She cannot recall her last BM.
In general, she seems somewhat confused and cannot provide much detail / recent history.
Patient also had recent L breast biopsy (of suspected metastatic lesion) and has a wound at that site. She was just started on doxycycline today for this purpose.
Medical History
Past Medical History
Past Medical History: Reports Other
Additional Past Medical History:
Bladder Cancer
Past Surgical History: Reports Other
Additional Past Surgical History:
Bilateral Nephrostomy Tubes
Appendectomy
OSWALD
Social History
Tobacco: Non-smoker
Alcohol: None
Drug: None
Living: With Family
Family History
Family History: Not pertinent
Allergies / Home Medications
Allergies reflects when Allergies were last updated in [employer].
Home Medications with original date entered in [employer]
Allergy/Medication List:
Allergies
Allergy/AdvReac Type Severity Reaction Status Date / Time
No Known Allergies Allergy Verified 04/20/25 20:43
Home Medications
oxycodone 5 mg PO PRN PRN PAIN 04/20/25
Review of Systems
-
History Source: Patient and Family
A 12 point ROS was completed and negative except as noted: Yes
Constitutional: Reports Fatigue; Denies Fever or Chills
Respiratory: Denies Cough or Trouble Breathing
Cardiac: Denies Chest Pain or Palpitations
Abdomen/GI: Reports Abdominal Pain, Constipated and Anorexia; Denies Nausea, Vomiting or Diarrhea
: Denies Dysuria or Frequency
Neurological: Denies Dizzy or Headache
Physical Exam
Vital Signs
Vital Signs
Temp Pulse Resp BP Pulse Ox
98.1 F 94 14 169/103 96
04/20/25 20:44 04/21/25 02:30 04/20/25 23:01 04/21/25 01:36 04/21/25 02:00
Physical Exam
General: Other (Chronically ill-appearing 79y F in no acute distress.)
HEENT: PERRLA and Other (Dry MM. Neck supple.)
Respiratory: Clear; No Wheezes, Rales or Rhonchi
Cardiac: S1/S2 and Regular Rhythm; No Murmur
GI: Other (Abdomen is distended / tympanic. Bowel sounds are diminished. No focal tenderness, rebound or guarding.)
Genito-urinary: Other (Bilateral PCN noted. L draining light yellow urine. R without urine in device.)
Musculoskeletal: No Clubbing, No Cyanosis and No Edema
Skin: Other (L breast wound with dressing in place. No active bleeding / discharge.)
Neuro: Awake; No Oriented
Laboratory Results
-
04/20/25 22:06
04/20/25 22:06
Laboratory Results
Lactic Acid 1.7 mmol/L (0.7-2.0) 04/21/25 00:05
Total Bilirubin 0.7 mg/dl (0.2-1.3) 04/20/25 22:06
AST 42 U/L (14-36) H 04/20/25 22:06
ALT 18 U/L (0-35) 04/20/25 22:06
Alkaline Phosphatase 477 U/L (38-126) H 04/20/25 22:06
Impression/Plan
-
A/P: Patient is a 79y F with PMH significant for bladder cancer who presents to ED for evaluation of possibly displaced R PCN.
Displaced R Nephrostomy
Suspected UTI
Sepsis secondary to the above
Acute TME secondary to the above
- Admit for further evaluation and treatment.
- Patient presents with leukocytosis, tachycardia, acute TME and obstructive uropathy / concern for UTI.
- US done in the ED shows R hydronephrosis and no visualized catheter. Correlates exam findings that suggest tube is displaced.
- Patient was scheduled for tube exchange on 04/19 - but apparently did not present for that appointment.
- IR eval for tube change / exchange / replacement.
- IV abx with ceftriaxone pending culture data.
- Supportive care including IVFs, etc.
- Follow for clinical improvement / improvement in confusion, etc.
Left Breast Wound
- Wound L breast from recent biopsy - healing poorly per .
- No active bleeding / discharge.
- On abx as noted above.
- Wound Care eval for local care recommendations.
Abdominal Distention
- Patient with significant abdominal distention and recent issues with constipation, etc.
- Check CT to evaluate for bowel obstruction v. progression of metastatic disease v other.
- Monitor for any N/V or other new, worsening symptoms.
CKD III
- Stable. Renal function appears at / near known baseline.
- Follow for changes.
- Correct obstructive uropathy as noted above.
Anemia of Chronic Disease
- Stable. Hgb is at / near known baseline.
Abnormal LFTs
- Likely secondary to hepatic metastatic disease.
Bladder Cancer
- Patient not currently on active therapy.
- Was followed at [facility]. Previously on Keytruda which she failed due to progression of disease.
- Recently tried alternate treatment / chemotherapy which she tolerated poorly due to adverse effects - stopped after three treatments.
- Only current med is oxycodone for pain control.
- states that they are in the process of arranging Hospice / Palliative nursing, etc - though no final arrangements have been made as of yet.
DVT Prophylaxis: SCDs
Code Status: DNR
[2025-04-21 03:36] LABS: Urine Granular Cast 0-2 /LPF (0); Urine Squamous Cell 26-30 /LPF (Few)
[2025-04-21 03:37] LABS: Urine Red Blood Cell 26-30 /HPF (0-2); Urine White Cell 80-90 /HPF (0-5)
[2025-04-21 03:38] LABS: Urine Bacteria Moderate (Negative)
[2025-04-21] MEDS: DILAUDID 0.5 MG IV (03:40)
[2025-04-21] MEDS: ROXICODONE 5 MG PO (03:41)
[2025-04-21] MEDS: OMNIPAQUE 50 ML PO (03:46)
--- NOTE | 2025-04-21 06:18 | PTCARENOTE ---
Patient admitted to IMU around 05:15 this am. Around 05:35, CT scan called for patient. RN assessed patient prior to transporting to CT. Patient aao x2 to person and place, unsure of date or year. ST on the monitor. Lung sounds diminished thoughout.
Pox 95% on 2L o2 n/c. BS active x4, abdoment round, distended and firm. Patient has b/l nephrostomy tubes out of place, both not sutured in and brain. This rn cleaned nephrostomy sites, and applied silicone bordered foam to b/l sites. Patient noted to
have a stage 1 to sacrum, and open necrotic wound to left breast; biopsy site. Foam applied to sacrum as well. Patient tolerated transport to CT scan well. Currently resting in bed, denies pain at this time, however is requesting a concrete block plant supervisor for last
rites. Will contact [facility] office this am with request. Call nelson within reach, will continue to monitor patient closely and report to oncoming rn.
--- NOTE | 2025-04-21 07:24 | PTCARENOTE ---
During admission assessment around 05:30, noted wrinkled and rolled up patch on patients back. This rn removed as it was barely attached to patients skin. Rn noted patch to be a medicated patch; Buprenorphrine transdermal 10mcg/hr patch. Patch saved
to waste. Notified oncoming RN who contacted pharmacy. Oncoming RN sent tt to hospitalist, Dr. Lentz.
--- NOTE | 2025-04-21 07:32 | W.PN.HOSP.TC ---
Addendum entered and electronically signed by Cathleen Lentz MD 04/24/25 13:32:
# UTI is related to/associated with/due to nephrostomy tube.
# Severe Protein Calorie Malnutrition
Addendum entered and electronically signed by Cathleen Lentz MD 04/21/25 17:24:
seafood harvester discussed with who is in agreement with home hospice.
Equipment to be delivered tomorrow, and plan for discharge on home hospice on Thursday.
Therapeutic meds stopped. No further blood work.
Addendum entered and electronically signed by Cathleen Lentz MD 04/21/25 15:58:
discussed with patient's PCP, now willing to have hospice consult here. Hospice consult placed.
Can consider stopping therapeutic meds once hospice finalized.
did inform that he prefers patient to not be on�morphine on discharge (due to her being very confused on morphine previously), he�is okay with oxycodone.��
Original Note:
Today's Communication/Plan
-
see A/P
Assessment / Plan
Assessment / Plan
HPI: 79y F with PMH significant for bladder cancer with obstructive uropathy; p/w nephrostomy tube problem.
states that patient has been somewhat confused and not acting herself for the past day or two. He noted that there appeared to be no urine in the R nephrostomy tube. He examined the area and found that the sutured area of the tube was about
2 inches from the skin and was not affixed. He was concerned that the tube may have become dislodged and brought the patient to the ED for further evaluation.
notes that patient has had abdominal distention for the past 4-6 weeks. She has had chronic issues with constipation due to her narcotic pain medication - typically managed with OTC bowel medications at home.
In the ED, patient is complaining of abdominal pain and distention. She denies any N/V. She cannot recall her last BM.
In general, she seemed somewhat confused and cannot provide much detail / recent history.
Patient also had recent L breast biopsy (of suspected metastatic lesion) and has a wound at that site. She was just started on doxycycline on DOA for this purpose.
A/P:
# Displaced R Nephrostomy
# Suspect complicated UTI
# Sepsis secondary to the above
# Acute metabolic encephalopathy secondary to the above
Patient presented with leukocytosis, tachycardia, acute TME and obstructive uropathy / concern for UTI.
US done in the ED showed R hydronephrosis and no visualized catheter. Correlates exam findings that suggest tube is displaced.
Patient was scheduled for BL tube exchange on 04/19 - but apparently did not present for that appointment.
IR eval for bilateral tube exchange / replacement.
Follow urine culture and blood culture
Cont IV abx with ceftriaxone for now
Supportive care including IVFs, etc.
MS now AOx2-3, cont to monitor
# Left Breast Wound
Wound L breast from recent biopsy - healing poorly per .
No active bleeding / discharge.
Cont IV abx with ceftriaxone as noted above, also add doxycycline
Wound Care eval for local care recommendations.
# Abdominal Distention
Patient with significant abdominal distention and recent issues with constipation, etc.
Check CT to evaluate for bowel obstruction v. progression of metastatic disease v other. Follow CT AP report
Monitor for any N/V or other new, worsening symptoms.
cont bowel regimen with Senokot-S and Miralax daily as pt on opiate for pain control
# CKD III, stable.
Renal function appears at / near known baseline.
Follow for changes.
Correct obstructive uropathy as noted above.
# Anemia of Chronic Disease- Stable.
Hgb is at / near known baseline.
# Abnormal LFTs
Likely secondary to hepatic metastatic disease.
Follow LFT
# Bladder Cancer
Patient not currently on active therapy.
Was followed at [facility] Previously on Keytruda which she failed due to progression of disease.
Recently tried alternate treatment / chemotherapy which she tolerated poorly due to adverse effects - stopped after three treatments.
states that they are in the process of arranging Hospice / Palliative nursing, etc. - though no final arrangements have been made as of yet.
Pain control with IV Morphine PRN and INTERNATIONAL TRADE MANAGER oxycodone PRN, cont bowel regimen with Senokot-S and Miralax daily
# Hypokalemia
replete
DVT Prophylaxis: SCDs
Code Status: DNR
DW RN
updated on the phone. He confirmed that the pt's PCP has started palliative/hospice eval outpt but no formal plan has been set yet.
I offered hospice consult for pt here, but would like to chat to PCP first before we formally consult hospice in the hospital.
Total time spent 51 min
Anticipated Discharge: 24 - 48 hours
Subjective/Interval History
-
Date of Service: April 21, 2025
Objective Data
-
Labs:
Laboratory Results
04/20/25 04/21/25
22:06 06:00
WBC 23.8 H Pending
Hgb 10.8 L Pending
Hct 33.3 L Pending
Plt Count 339 Pending
Sodium 135 Pending
Potassium 3.4 L Pending
Chloride 96 L Pending
Carbon Dioxide 28 Pending
BUN 48 H Pending
Creatinine 1.3 H Pending
Glucose 109 H Pending
Calcium 8.9 Pending
Total Bilirubin 0.7
AST 42 H
ALT 18
Alkaline Phosphatase 477 H
Vital Signs:
Vital Signs
Temp Pulse Resp BP Pulse Ox
36.7 C 104 14 145/98 95
04/20/25 20:44 04/21/25 05:00 04/21/25 05:00 04/21/25 05:00 04/21/25 06:26
Review of Systems
-
History Source: Patient
Abdomen/GI: Reports Abdominal Pain (generalized abd pain )
Physical Exam
-
General: Well Developed, Appears Chronically Ill and Other (clinically decompensated)
HEENT: Atraumatic, Moist Mucous Membranes and Oxygen (3L NC)
Respiratory: Clear to Auscultation and Non Labored Respirations; Negative Accessory Resp Muscle Use
Cardiac: Regular Rhythm and S1/S2
GI: Tender (generalized ) and Distended
Genito-urinary: Nephrostomy Tubes (Bilateral )
Neuro: Awake and Alert
Psych: Calm and Intact Judgement/Insight (somewhat)
Data Reviewed
-
Labs: Labs Reviewed by me
[2025-04-21 08:44] LABS: Hematocrit 29.2 % (37.0-47.0); Hemoglobin 9.7 g/dL (12.0-16.0); Mean Corp Hgb Conc. 33.2 g/dL (33.0-37.0); Mean Corpuscular Hgb 31.3 pg (27.0-31.0); Mean Corpuscular Volume 94.2 fL (81.0-99.0); Mean Platelet Volume 9.7 fL (7.4-10.4); Platelet Count 297 10^3/uL (130-400); Red Cell Dist. Width 17.3 % (11.5-14.5)
[2025-04-21] MEDS: KCL 40 MEQ PO (09:09)
[2025-04-21] MEDS: ROCEPHIN 1000 MG IV (09:09)
[2025-04-21] MEDS: STERILE WATER FOR INJECTION 10 ML IV (09:09)
[2025-04-21] MEDS: VIBRAMYCIN 100 MG PO (09:10)
[2025-04-21] MEDS: SENOKOT-S 1 TABLET PO ×2 (09:19→19:13)
[2025-04-21] MEDS: MIRALAX 17 GRAMS PO (09:19)
[2025-04-21 09:31] LABS: Blood Urea Nitrogen 47 mg/dl (7-17); Calcium 8.6 mg/dl (8.4-10.2); Carbon Dioxide 26 mmol/L (22-30); Chloride 100 mmol/L (98-107); Estimated Creatinine Clearance 30 ml/min; Glucose 81 mg/dl (70-99); Potassium 3.6 mmol/L (3.5-5.1); Sodium 133 mmol/L (135-145); eGFR 46.62
[2025-04-21] MEDS: APRESOLINE 10 MG IV (12:35)
[2025-04-21] MEDS: REMOVE PT OWN BUTRANS PATCH 10 PATCH REMOVE ×2 (12:44)
--- NOTE | 2025-04-21 13:02 | PTCARENOTE ---
Patient back from IR s/p b/l nephrostomy exchange. Patient stating that pain is acceptable at this time. Patients SBP >150. Discussed with Dr. Lentz, Hydralazine administered. Patient is requiring 3 liters oxygen at this time. Pulse ox 88% on room
air.
--- NOTE | 2025-04-21 14:46 | WOUNDNOTE ---
SPINE, blanchable red
--- NOTE | 2025-04-21 15:00 | PTOTSP ---
Speech Language Pathology
Pt seen for clinical bedside swallow evaluation. present at bedside. They reported minimal appetite at home with early satiety and frequent belching with P.O. P.O. trials of puree, regular solids, and thin liquids provided. Adequate
mastication, bolus formation, and A-P transit noted with no oral residue. With consecutive sips, brief cough noted x1. Frequent belching noted with coughing noted following this at times. Question reverse aspiration. Pt reported early satiety.
Recommend:
(1) Consideration for GI consult
(2) Consider thin liquids only at this time
(3) Aspiration precautions: sit as upright as possible, slow rate, single sips
(4) Meds as tolerated
(5) PANTS MAKER to continue to follow
--- NOTE | 2025-04-21 15:01 | WOUNDNOTE ---
[facility] RN note: Patient admitted with UTI sepsis
See H&P for complete history.
PMH: Bladder cancer with bilateral nephrostomy tubes, CKD III, anemia,
Wound Location and type/assessment: Patient admitted with sacral stage 2 PI. See worklist for details and measurements. Patient also admitted with left breast biopsy wound that appears necrotic. The surrounding tissue is firm. No odor or drainage
noted. Heels blanchable and intact. Some blanchable red spots noted on spine.
Appetite: BMI 16, awaiting speech consult for swallowing
Pressure redistribution devices in place: Centrella Max Air, heels off-loaded with pillow or air cushion under calves
Plan: Protective sacral foam applied to stage 2 PI and left breast necrotic wound. Per chart review plan was for hospice prior to admission. Patient has several comorbidities including bladder cancer and BMI of 16. Wounds may worsen and new wounds
may develop even with optimal care. Will confirm orders with hospitalist and update nurse. Updated care plan and will follow as needed.
Note to case management of equipment requested for discharge:
Recommend follow up at wound care center upon discharge.
--- NOTE | 2025-04-21 15:17 | CHAP ---
Chemical Laboratory Scientist request received: volunteer chinese instructor Mary Beth Tejada provided emotional and spiritual support.
--- NOTE | 2025-04-21 16:52 | CM ---
Addendum entered by Katerina Rodrigues RN 04/21/25 17:12:
Per Gillian, Hospice; plan home Thursday with Hospice, requesting 11 am ambulance.
Ambulance forms provided to refinery operator vapor recovery unit
OO[facility] DNR on chart for MD signature
Plan home thursday 11am with Hospice by ambulance
Original Note:
Patient with Hx Bladder Cancer with Dx Displaced R Nephrostomy, Suspect complicated UTI, Sepsis, Left Breast Wound. O2 3L. Receiving IVF. Per nurse; bedrest.
Met with patient and ;
the patient resides with her in a 2 story house with 1 outside step and 2nd floor bedroom/bath.
The patient haad her last chemo about 2 weeks agao and was independent until that time.
For the past 7-10 days she was mostly staying in bed upstairs or lying on couch or recliner downstairs.
The patient was still able to ambulate short distances.
She was assisted with ADLs recently by her .
Patient volunteers that she has a wound on her breast however patient or were not doing wound care.
Patient states she is only eating/drinking small amounts.
The patient has no DME, prior VN or SNF.
PCP - David Perrin
Pharmacy - [facility]
CM Consult: Hospice
Explained hospice philosophy & benefits
Patient and said PCP discussed hospice with them and provided prognosis that patient was at end of life.
Patient/ would like patient to return home with hospice.
Plan follow up after seen by Hospice.
--- NOTE | 2025-04-21 17:01 | HOSPNOTE ---
HOSPICE REFERRAL RECEIVED. CARLEE SPOKE TO SPOUSE WHO IS IN AGREEMENT. EQUIPMENT BEING DELIVERED TOMORROW. PATIENT WILL THEN NEED TRANSPORT TO HOME THURSDAY BY 11 AM. OOH DNR NEEDED. HOSPICE WILL THEN SIGN PATIENT ONTO SERVICE THURSDAY. ELIZABETH AND
ATTENDING UPDATED.
[2025-04-21] MEDS: FLUSH (NSS) 2 FLUSH IV ×2 (19:13→22:16)
[2025-04-22] VITALS (8 sets, daily range): BP systolic 117–163; BP diastolic 76–101
--- NOTE | 2025-04-22 00:33 | PTCARENOTE ---
Pt received at beginning of shift resting in bed. AAOx2. Very cachectic, weak. Admits to 7/10 pain to right lower abdomen. Medicated x 2 with Morphine as ordered with good relief. No Butrans med patch on pt with assessment by this RN and JEAN Dubois.
Documented as such. VSS. Afebrile. POX 93-96%. Right nephrostomy tube draining blood tinged with sediment/strands. Left nephrostomy tube draining clear yellow urine. Both nephrostomy tube dressings with small amount shadowing. Abdomen firm round
distended. +Flatus/belching. No BM. Rest of assessment as documented. Maintained on Q2hr turns. Call nelson remains within reach. Will continue to monitor.
[2025-04-22] MEDS: MORPHINE SULFATE 2 MG IV ×7 (01:05→19:48)
[2025-04-22] MEDS: APRESOLINE 10 MG IV (01:05)
[2025-04-22] MEDS: FLUSH (NSS) 3 FLUSH IV (01:06)
[2025-04-22] MEDS: ROXICODONE 5 MG PO (01:59)
--- NOTE | 2025-04-22 02:35 | W.PN.UPDATE ---
Update Note
Progress Note Update
Notified by RN that patient is requesting to be placed on Comfort Care tonight. Spoke with patient and reviewed that all medications will be stopped and that only medications for comfort will be ordered. Patient is oriented and understanding and
would like to be placed on Comfort care measures at this time. I called and spoke with her , Maicol Ceja, and let him know her wishes. Patient's is agreeable to start comfort care at this time as patient requests. Orders placed for
comfort care.
--- NOTE | 2025-04-22 02:54 | PTCARENOTE ---
Pt requesting Morphine gtt at this time. Pt understands she would be placed on comfort care and she is agreeable to this. Holli GOMES TT'd and on floor to speak with pt. Pt repeated to Holli GOMES what she told this RN. Decision made to call
pt's Maicol. Holli GOMES called and spoke with Maicol who was in agreement with pt's wishes. Morphine gtt order entered. Waiting on verification from pharmacy. Pt now comfort care.
[2025-04-22] MEDS: ATIVAN 0.5 MG PO ×2 (03:06→06:12)
[2025-04-22] MEDS: FLUSH (NSS) 2 FLUSH IV ×2 (03:18→06:13)
[2025-04-22] MEDS: MORPHINE 100 IV (03:38)
--- NOTE | 2025-04-22 03:45 | PTCARENOTE ---
Pt now comfort care. Placed on Morphine gtt per pt's request starting at 1mg/hr. Will continue to monitor.
--- NOTE | 2025-04-22 07:28 | W.PN.HOSP.TC ---
Today's Communication/Plan
-
Keep her comfortable. Home tomorrow with hospice.
Assessment / Plan
Assessment / Plan
HPI/presentation:
79y F with PMH significant for bladder cancer with obstructive uropathy; p/w nephrostomy tube problem.
states that patient had been somewhat confused and not acting herself for the past day or two. He noted that there appeared to be no urine in the R nephrostomy tube. He examined the area and found that the sutured area of the tube was about
2 inches from the skin and was not affixed. He was concerned that the tube may have become dislodged and brought the patient to the ED for further evaluation.
notes that patient has had abdominal distention for the past 4-6 weeks. She has had chronic issues with constipation due to her narcotic pain medication - typically managed with OTC bowel medications at home.
In the ED, patient was complaining of abdominal pain and distention. She denied any N/V. She cannot recall her last BM.
In general, she seemed somewhat confused and cannot provide much detail / recent history.
Patient also had recent L breast biopsy (of suspected metastatic lesion) and has a wound at that site. She was just started on doxycycline on DOA for this purpose.
A/P:
# Displaced R Nephrostomy
# Suspect complicated UTI
# Sepsis secondary to the above
# Acute metabolic encephalopathy secondary to the above
Patient has now been placed on Comfort care and the plan is for her to go home on hospice tomorrow.
Hospital course:
Patient presented with leukocytosis, tachycardia, acute TME and obstructive uropathy / concern for UTI.
US done in the ED showed R hydronephrosis and no visualized catheter. Correlates exam findings that suggest tube is displaced.
Patient was scheduled for BL tube exchange on 04/19 - but apparently did not present for that appointment.
IR eval for bilateral tube exchange / replacement.
Follow urine culture and blood culture
was given IV abx with ceftriaxone
Supportive care including IVFs, etc.
MS now AOx2-3, cont to monitor
# Left Breast Wound
Wound L breast from recent biopsy - healing poorly per .
No active bleeding / discharge.
given IV abx with ceftriaxone as noted above, also doxycycline
Wound Care eval for local care recommendations.
# Abdominal Distention
Patient with significant abdominal distention and recent issues with constipation, etc.
Check CT to evaluate for bowel obstruction v. progression of metastatic disease v other. Follow CT AP report
Monitor for any N/V or other new, worsening symptoms.
given bowel regimen with Senokot-S and Miralax daily as pt on opiate for pain control
# CKD III, stable.
Renal function appears at / near known baseline.
Follow for changes.
tried to Correct obstructive uropathy as noted above.
# Anemia of Chronic Disease- Stable.
Hgb is at / near known baseline.
# Abnormal LFTs
Likely secondary to hepatic metastatic disease.
# Bladder Cancer
Patient not currently on active therapy.
Was followed at [facility]. Previously on Keytruda which she failed due to progression of disease.
Recently tried alternate treatment / chemotherapy which she tolerated poorly due to adverse effects - stopped after three treatments.
states that they were in the process of arranging Hospice / Palliative nursing, etc. - though no final arrangements have been made as of yet.
Pain control with IV Morphine PRN and OVERLOCK HEMMER oxycodone PRN, cont bowel regimen with Senokot-S and Miralax daily
# Hypokalemia
repleted
DVT Prophylaxis: SCDs
Code Status: DNR
on 04/21/25 team updated on the phone. He confirmed that the pt's PCP has started palliative/hospice eval outpt but no formal plan has been set yet.
Total time spent 51 min
Anticipated Discharge: Within 24 hours
Subjective/Interval History
-
Date of Service: April 22, 2025
Sleeping comfortably in bed. On comfort care.
Objective Data
-
Vital Signs:
Vital Signs
Temp Pulse Resp BP Pulse Ox
98.1 F 95 10 140/82 96
04/22/25 04:37 04/22/25 04:00 04/22/25 02:15 04/22/25 04:00 04/22/25 04:00
I&O
04/21/25 04/22/25 04/23/25
06:59 06:59 06:59
Intake Total 320 / 320
Output Total 850 / 850
Balance -530 / -530
Review of Systems
-
Unable to obtain full review of systems at this time due to: Other (On comfort care and sleeping)
Physical Exam
-
General: No Apparent Distress, Comfortable and Appears Chronically Ill
HEENT: Normocephalic, Atraumatic, Nose Appears Normal and Ears Appear Normal
Respiratory: Non Labored Respirations
Data Reviewed
-
Labs: Labs Reviewed by me
[2025-04-22] MEDS: MORPHINE SULFATE 1 MG IV (10:10)
--- NOTE | 2025-04-22 14:28 | HOSPNOTE ---
Patient was initiated on comfort measures and a morphine drip overnight. Spoke with spouse today and reviewed what this entails plus inpatient hospice. Our plan is to admit inpatient hospice tomorrow if patient is still with us. Spouse will come to
the hospital to sign consents as well. Emotional support provided to spouse Maicol. He is notifying patients siblings of her decline as well and requesting they come to visit as soon as they can. CM/Attending updated and in agreement.
--- NOTE | 2025-04-22 16:12 | CHAP ---
Anh opened her eyes briefly upon hearing her name. She welcomed prayer and said some of the words with me as I offered the Our Father. No family was present. Emotional and spiritual support provided.
[2025-04-23] MEDS: MORPHINE SULFATE 2 MG IV ×3 (03:37→09:25)
[2025-04-23] MEDS: ZOFRAN 4 MG IV (03:52)
[2025-04-23 07:10] VITALS: BP 109/74
--- NOTE | 2025-04-23 08:55 | W.PN.HOSP.TC ---
Today's Communication/Plan
-
Keep comfortable
Assessment / Plan
Assessment / Plan
HPI/presentation:
79y F with PMH significant for bladder cancer with obstructive uropathy; p/w nephrostomy tube problem.
states that patient had been somewhat confused and not acting herself for the past day or two. He noted that there appeared to be no urine in the R nephrostomy tube. He examined the area and found that the sutured area of the tube was about
2 inches from the skin and was not affixed. He was concerned that the tube may have become dislodged and brought the patient to the ED for further evaluation.
notes that patient has had abdominal distention for the past 4-6 weeks. She has had chronic issues with constipation due to her narcotic pain medication - typically managed with OTC bowel medications at home.
In the ED, patient was complaining of abdominal pain and distention. She denied any N/V. She cannot recall her last BM.
In general, she seemed somewhat confused and cannot provide much detail / recent history.
Patient also had recent L breast biopsy (of suspected metastatic lesion) and has a wound at that site. She was just started on doxycycline on DOA for this purpose.
A/P:
# Displaced R Nephrostomy
# Suspect complicated UTI
# Sepsis secondary to the above
# Acute metabolic encephalopathy secondary to the above
Patient has now been placed on Comfort care and the plan is for her to go on inpatient hospice service today.
Hospital course:
Patient presented with leukocytosis, tachycardia, acute TME and obstructive uropathy / concern for UTI.
US done in the ED showed R hydronephrosis and no visualized catheter. Correlates exam findings that suggest tube is displaced.
Patient was scheduled for BL tube exchange on 04/19 - but apparently did not present for that appointment.
IR eval for bilateral tube exchange / replacement.
Follow urine culture and blood culture
was given IV abx with ceftriaxone
Supportive care including IVFs, etc.
MS now AOx2-3, cont to monitor
# Left Breast Wound
Wound L breast from recent biopsy - healing poorly per .
No active bleeding / discharge.
given IV abx with ceftriaxone as noted above, also doxycycline
Wound Care eval for local care recommendations.
# Abdominal Distention
Patient with significant abdominal distention and recent issues with constipation, etc.
Check CT to evaluate for bowel obstruction v. progression of metastatic disease v other. Follow CT AP report
Monitor for any N/V or other new, worsening symptoms.
given bowel regimen with Senokot-S and Miralax daily as pt on opiate for pain control
# CKD III, stable.
Renal function appears at / near known baseline.
Follow for changes.
tried to Correct obstructive uropathy as noted above.
# Anemia of Chronic Disease- Stable.
Hgb is at / near known baseline.
# Abnormal LFTs
Likely secondary to hepatic metastatic disease.
# Bladder Cancer
Patient not currently on active therapy.
Was followed at [facility]. Previously on Keytruda which she failed due to progression of disease.
Recently tried alternate treatment / chemotherapy which she tolerated poorly due to adverse effects - stopped after three treatments.
states that they were in the process of arranging Hospice / Palliative nursing, etc. - though no final arrangements have been made as of yet.
Pain control with IV Morphine PRN and DRUG AND ALCOHOL TREATMENT SPECIALIST oxycodone PRN, cont bowel regimen with Senokot-S and Miralax daily
# Hypokalemia
repleted
DVT Prophylaxis: SCDs
Code Status: DNR
Total time spent 51 min
Anticipated Discharge: 24 - 48 hours
Subjective/Interval History
-
Date of Service: April 23, 2025
Comfortable
Objective Data
-
Vital Signs:
Vital Signs
Temp Pulse Resp BP Pulse Ox
100.6 F H 134 12 109/74 85
04/23/25 07:10 04/23/25 07:10 04/23/25 07:10 04/23/25 07:10 04/23/25 07:10
I&O
04/22/25 04/23/25 04/24/25
06:59 06:59 06:59
Intake Total 320 / 320
Output Total 850 / 850 400 / 400
Balance -530 / -530 -400 / -400
Review of Systems
-
Unable to obtain full review of systems at this time due to: Acuity and Patient Non-verbal
Physical Exam
-
General: Comfortable
HEENT: Nose Appears Normal and Ears Appear Normal
Respiratory: Non Labored Respirations
Psych: Calm
--- NOTE | 2025-04-23 10:43 | HOSPNOTE ---
Spoke to spouse at length today about signing patient onto inpatient hospice. He now understands why she cant go home and why inpatient hospice is appropriate. He will meet hospice in patients room around 12 noon to sign consents. Attending and CM
updated. Will notify once consents are signed.
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
--- NOTE | 2025-04-23 14:18 | W.DCSUMMARY ---
Discharge Summary
Discharge Data
Date of Admission: 04/21/25
Date of Discharge: 04/23/25
Total time spent discharging patient (in min): 45
-
Pending Results: No
Hospital Course
HPI/presentation:
79y woman with PMH significant for
bladder cancer with obstructive uropathy;
p/w nephrostomy tube problem.
stated that patient had been somewhat confused and not acting herself for the past day or two. He noted that there appeared to be no urine in the R nephrostomy tube. He examined the area and found that the sutured area of the tube was about
2 inches from the skin and was not affixed. He was concerned that the tube may have become dislodged and brought the patient to the ED for further evaluation. noted that patient has had abdominal distention for the past 4-6 weeks. She has
had chronic issues with constipation due to her narcotic pain medication - typically managed with OTC bowel medications at home. In the ED, patient was complaining of abdominal pain and distention. She denied any N/V. She could not recall her
last BM. In general, she seemed somewhat confused and cannot provide much detail / recent history. Patient also had recent L breast biopsy (of suspected metastatic lesion) and has a wound at that site. She was just started on doxycycline on DOA
for this purpose.
Hospital diagnosis:
# Displaced R Nephrostomy
# Suspect complicated UTI
# Sepsis secondary to the above
# Acute metabolic encephalopathy secondary to the above
Patient was placed on Comfort care and was discharged for hospice care.
Hospital course by problem:
1. Sepsis.
Patient presented with leukocytosis, tachycardia, acute TME and obstructive uropathy / concern for UTI.
US done in the ED showed R hydronephrosis and no visualized catheter. Correlates exam findings that suggest tube is displaced.
Patient was scheduled for BL tube exchange on 04/19 - but apparently did not present for that appointment.
IR eval for bilateral tube exchange / replacement.
urine culture and blood culture weer drawn
She was given IV abx with ceftriaxone
Supportive care including IVFs, etc.
After failure to improve, Given overall picture, family felt it was best to focus care on comfort.
2. Left Breast Wound
Wound L breast from recent biopsy - healing poorly per .
No active bleeding / discharge.
given IV abx with ceftriaxone as noted above, also doxycycline
Wound Care eval for local care recommendations.
Wound did not improve.
3. Abdominal Distention
Patient had significant abdominal distention and recent issues with constipation, etc.
A CT to evaluate for bowel obstruction v. progression of metastatic disease v other. showed the following:
1. SEVERE ACUTE RIGHT HYDROURETERONEPHROSIS secondary to malignant obstruction of the distal right ureter. DISLODGED RIGHT PERCUTANEOUS NEPHROSTOMY TUBE.
2. Left percutaneous nephrostomy tube in normal position.
3. SEVERE EXTENSIVE HEPATIC METASTATIC DISEASE which has increased since 12/14/2024.
4. SEVERE EXTENSIVE BLASTIC OSSEOUS METASTATIC DISEASE which has increased since 12/14/2024.
5. 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
6. Multiple peritoneal metastases in the left side of the abdomen.
7. Small volume abdominal and pelvic ascites.
8. Large amount of fecal material throughout the colon or rectum with associated distention consistent with CONSTIPATION.
9. Moderate-sized right pleural effusion.
10. Moderate-sized pericardial effusion.
11. Pulmonary metastases.
12. Right breast metastasis.
4 CKD III, stable.
Renal function appears initially at / near known baseline.
tried to Correct obstructive uropathy as noted above.
5. Anemia of Chronic Disease- Stable.
Hgb was at / near known baseline.
6. Abnormal LFTs
Likely secondary to hepatic metastatic disease.
7. Bladder Cancer
Patient not currently on active therapy.
Was followed at [facility]. Previously on Keytruda which she failed due to progression of disease.
Recently tried alternate treatment / chemotherapy which she tolerated poorly due to adverse effects - stopped after three treatments.
states that they were in the process of arranging Hospice / Palliative nursing, etc. - though no final arrangements had been made as of yet.
Initially we maximized Pain control with IV Morphine PRN and ASSISTANT PROFESSOR OF THEATER oxycodone PRN, cont bowel regimen with Senokot-S and Miralax daily
Then she was transferred to hospice care.
8. Hypokalemia
repleted
DVT Prophylaxis: SCDs
Code Status: DNR
Discharge Plan
-
Patient Disposition: Hospice - Inpatient DH
Discharge Orders:
Discharge Patient (As Directed); Ordered 04/23/25
Ordered By: Sage Marino
Discharge Date and Time
Print Language: SWEDISH
== END 2025-04-23 16:02 | disposition hospice, inpatient (51) | DRG 698 ==
LOC: 2 NORTH 03:24
PROVIDERS: Nurse Practitioner; Radiology Vascular & Interventional Radiology; ADMITTING PHYSICIAN Hospitalist; ATTENDING PHYSICIAN Internal Medicine; EMERGENCY PHYSICIAN Emergency Medicine; FAMILY PHYSICIAN Family Medicine
PROC: BT131ZZ Fluoroscopy of Bilateral Kidneys using Low Osmolar Contrast (ICD-10-PCS; 2025-04-21)
PROC: 0T25X0Z Change Drainage Device in Kidney, External Approach (ICD-10-PCS; 2025-04-21)
DX: T83.022A Displacement of nephrostomy catheter, initial encounter (principal); A41.9 Sepsis, unspecified organism; G93.41 Metabolic encephalopathy; E43 Unspecified severe protein-calorie malnutrition; N13.6 Pyonephrosis; T83.512A Infection and inflammatory reaction due to nephrostomy catheter, initial encounter; C78.7 Secondary malignant neoplasm of liver and intrahepatic bile duct; Z68.1 Body mass index [BMI] 19.9 or less, adult; C79.51 Secondary malignant neoplasm of bone; C78.6 Secondary malignant neoplasm of retroperitoneum and peritoneum; R18.8 Other ascites; J90 Pleural effusion, not elsewhere classified; I31.39 Other pericardial effusion (noninflammatory); C78.00 Secondary malignant neoplasm of unspecified lung; C79.81 Secondary malignant neoplasm of breast; R53.1 Weakness; Z51.5 Encounter for palliative care; C67.9 Malignant neoplasm of bladder, unspecified; N18.30 Chronic kidney disease, stage 3 unspecified; I12.9 Hypertensive chronic kidney disease with stage 1 through stage 4 chronic kidney disease, or unspecified chronic kidney disease; K59.03 Drug induced constipation; E87.6 Hypokalemia; D63.8 Anemia in other chronic diseases classified elsewhere; R79.89 Other specified abnormal findings of blood chemistry; T40.605A Adverse effect of unspecified narcotics, initial encounter; Y84.6 Urinary catheterization as the cause of abnormal reaction of the patient, or of later complication, without mention of misadventure at the time of the procedure; Y92.9 Unspecified place or not applicable; Z66 Do not resuscitate; Z90.710 Acquired absence of both cervix and uterus; Z90.49 Acquired absence of other specified parts of digestive tract; Z93.6 Other artificial openings of urinary tract status; Z92.26 Personal history of immune checkpoint inhibitor therapy
CPT/HCPCS: 50435; 74176; 76775; 80048; 80053; 81003; 81015; 83605; 85025; 85027; 87040; 87070; 87077; 87086; 87147; 87186; 87205; 92610; 96361; 96374; 96375; 96376; 99285; C1729; C1769

== ENCOUNTER 2025-04-23 16:11 | Inpatient (IN) | payer OTHER, SELFPAY ==
[2025-04-23 16:16] VITALS: BMI 16.3
[2025-04-23] MEDS: MORPHINE SULFATE 2 MG IV ×2 (17:36→20:52)
--- NOTE | 2025-04-23 21:57 | HOSPNOTE ---
Patient admitted onto inpatient hospice. Spouse signed consents. Patient is inpatient hospice for the management of pain that cant be managed in the outpatient setting. Patient is on a morphine drip step 2, 2 mg/hr. Hospice will visit daily.
[2025-04-23 23:21] VITALS: BP 99/63
[2025-04-23] MEDS: MORPHINE 100 IV (23:52)
[2025-04-24] MEDS: MORPHINE SULFATE 2 MG IV ×4 (00:01→09:27)
[2025-04-24 07:14] VITALS: BP 111/64
[2025-04-24] MEDS: TYLENOL/FEVERALL 650 MG RECTAL ×2 (07:46→13:14)
[2025-04-24] MEDS: ATIVAN 1 MG IV ×2 (07:46→11:07)
[2025-04-24] MEDS: ROBINUL 0.2 MG IV ×2 (08:10→13:43)
--- NOTE | 2025-04-24 09:24 | CHAP ---
Note: Anh received Sacrament of the Sick (Last Rites) from Fr. Phelps on April 23, 2025 as requested by her sister.
--- NOTE | 2025-04-24 09:25 | HOSPNOTE ---
Patient GIP for management of pain requiring IV pain medication, patient unable to swallow. Patient on Morphine gtt infusing at 2 mg/hr, received 5 PRN Morphine doses in the last 24 hours. Respirations shallow at 8 BPM, rhonchi noted, patient
received 1 PRN dose of Robinul at 0810. PRN dose of Ativan at 0746 for agitation. Hospice to visit daily.
[2025-04-24] MEDS: MORPHINE SULFATE 4 MG IV ×2 (11:06→13:43)
--- NOTE | 2025-04-24 12:01 | PN.CDI ---
CDI
- -
CDI:
Physician Documentation Request
Admit Date: 04/23/25 16:11
Dear Doctor Tor,
Clinical Indicators:
Patient admitted with sepsis; PMH included metastatic bladder cancer.
BMI 16.3
04/21 note/assessment: -'This is a 12.3% BW loss over 4 months (significant)'
-'Patient meets AND and KENNEDIEN criteria for severe protein calorie malnutrition of
chronic illness due to a loss of more than 7.5% BW over 3 months and severe muscle
wasting at her clavicle.'
Based on the above information and your assessment, which of the following most accurately represents the patient's nutritional status?
Severe Protein Calorie Malnutrition
Other (please specify)
[place] Criteria ([facility] Hospitalist 2017)
2 or more criteria must be present for either
non severe or severe malnutrition
Note that the criteria differs related to the
presence of an acute or chronic illness
Acute Illness Chronic Illness
Energy Intake Non Severe: <75% for >7 days Non Severe: <75% for >1 month
Severe: <50% for >5 days Severe: <75% for >1 month
Weight Loss Non Severe: 1-2% over 1 week Non Severe: 5% over 1 month
5% over 1 month 7.5% over 3 months
7.5% over 3 months 10% over 6 months
1 year N/A 20% over 1 year
Severe: >2% over 1 week Severe: >5% over 1 month
>5% over 1 month >7.5% over 3 months
>7.5% over 3 months >10% over 6 months
1 year N/A >20% over 1 year
Body Fat Non Severe: Mild Decrease Non Severe: Mild Loss
Severe: Moderate Decrease Severe: Severe Loss
Muscle Mass Non Severe: Mild Decrease Non Severe: Mild Loss
Severe: Moderate Decrease Severe: Severe Loss
Fluid Accumulation Non Severe: Mild Accumulation Non Severe: Mild Accumulation
Severe: Moderate to severe Severe: Moderate to severe
accumulation accumulation
Reduced Newspaper Journalist Strength Non Severe: N/A Non Severe: N/A
Severe: Measurably reduced Severe: Measurably reduced
Additional criteria that can be used to Determine if Mild or Moderate Malnutrition (Merck Manual 2018)
Mild Moderate Severe
Albumin gm/dl <3.0 gm/dl <2.5 gm/dl <2.0 gm/dl
Pre Albumin mg/dl <15 gm/dl <10 mg/dl <5.0 mg/dl
BMI <18.5 <17 <16
Use of terms such as suspected, likely, concern for, or probable (associated with a specific diagnosis that is being evaluated, monitored, or treated as if it exists) are acceptable and can be coded in the inpatient setting, when documented at the
time of discharge.
Thank you,
HONORIO Kovacs RN
CDI Specialist
available via tiger text
Please use your independent medical judgment in providing your response.
--- NOTE | 2025-04-24 12:07 | PN.CDI ---
CDI
- -
CDI:
Physician Documentation Request
Admit Date: 04/23/25 16:11
Dear Doctor Tor,
Clinical Indicators:
Patient admitted with sepsis.
04/21 PN, 'Displaced R Nephrostomy # Suspect complicated UTI'
04/21 Urine culture:
04/21/25 02:48 Urine Culture - Preliminary
Urine Staph aureus MRSA
Enterococcus species
Gram negative bacilli
Please clarify the likely relationship between these conditions:
Yes, UTI is related to/associated with/due to nephrostomy tube.
No, UTI is not related to/associated with/due to nephrostomy tube but it is due to ___. (Please specify)
Unable to determine
Use of terms such as suspected, likely, concern for, or probable (associated with a specific diagnosis that is being evaluated, monitored, or treated as if it exists) are acceptable and can be coded in the inpatient setting, when documented at the
time of discharge.
Thank you,
HONORIO Kovacs RN
CDI Specialist
available via tiger text
Please use your independent medical judgment in providing your response.
--- NOTE | 2025-04-24 12:31 | CM ---
CM following re: discharge planning.
Reviewed pt's chart.
Pt is inpatient hospice level of care with hospice GIP.
CM is available for emotional support.
--- NOTE | 2025-04-24 16:38 | W.PN.DEATH ---
Addendum entered and electronically signed by Lyn Dennis MD 04/24/25 17:43:
Dictation- [id number]
Original Note:
Pronouncement of
-
Called to see patient to pronounce.
No spontaneous heart tones or respirations noted.
Patient not responsive to verbal stimuli.
Patient is pronounced .
Time of : 15:48
Date of : 04/24/25
Cause of : Sepsis, due to Complicated urinary Tract Infection due to metastatic bladder cancer
Family Notified: Yes ( at bed side)
== END 2025-04-24 15:48 | disposition expired | DRG 951 ==
LOC: 2 NORTH 16:11
PROVIDERS: ADMITTING PHYSICIAN Internal Medicine; ATTENDING PHYSICIAN Hospitalist
DX: Z51.5 Encounter for palliative care (principal); A41.9 Sepsis, unspecified organism; N39.0 Urinary tract infection, site not specified; C67.9 Malignant neoplasm of bladder, unspecified